=== PATIENT | male | born 1950 | race Caucasian/White ===

== ENCOUNTER → 2020-03-05 | Outpatient (CLI) | payer MEDICARE, BC ==
[~2020-03-05] MED LIST: ALPR0.5T3 PO; BYST5TAB2 PO; CYAN500T8 IM; DULO1CAP5 PO; FOLI1TAB11 PO; HYDR-3713 PO; IRBE150T7 PO; ISOVUE-370 76% 100ML VIAL As Ordered ONE; KEPP1TAB PO; MAGO400T2 PO; MULTCAP PO; OMEP1CAP73 PO; POTA10TA16 PO; PRAM1TAB7 PO; TRAZ-252 PO; XARE10TA PO; vitamin b1 PO
--- NOTE | 2020-03-05 17:42 | REPVR ---
PROCEDURE INFORMATION: Exam: CT Neck With Contrast Exam date and time: 03/05/2020 4:29 PM Age: 69 years old Clinical indication: Condition or disease; Cancer; Other: Tongue TECHNIQUE: Imaging protocol: Computed tomography images of the neck with intravenous contrast. Radiation optimization: All CT scans at this facility use at least one of these dose optimization techniques: automated exposure control; mA and/or kV adjustment per patient size (includes targeted exams where dose is matched to clinical indication); or iterative reconstruction. Contrast material: ISOVUE 370; Contrast volume: 75 ml; Contrast route: INTRAVENOUS (IV); COMPARISON: No relevant prior studies available. FINDINGS: Sinuses: There is minimal mucoperiosteal thickening in the floors of the maxillary antra.The remainder of the paranasal sinuses appear clear. Nasopharynx: Unremarkable. Oropharynx: The tongue is asymmetric- more prominent to the left of midline. The margins of the mass are not clearly defined but it may measure up to 3.2 cm AP x 2 cm in width. Series 202, image 25 series 201 images 29-42. Hypopharynx: Unremarkable. Larynx: Unremarkable. Normal epiglottis. Retropharyngeal space: Unremarkable. Submandibular/Parotid glands: The submandibular glands are symmetric. The parotid glands are symmetric. Thyroid: Normal. No enlarged or calcified nodules. Lymph nodes: There is enlarged submental lymph node in the midline measuring 9 mm. It is rounded in configuration. There are no further significantly enlarged lymph nodes. Trachea: Visualized trachea is unremarkable. Lungs: No consolidation in the upper lobes. Bones/joints: There is bony erosion of the maxilla centrally and to the right of midline likely associated with dental disease, series 201, images 23-27. Vasculature: Atherosclerosis is seen in both carotid bulbs. Soft tissues: Unremarkable. No significant soft tissue swelling. IMPRESSION: The tongue mass is not clearly defined however there is asymmetry with the left side of the tongue more prominent than the right likely indicating the site of tumor. Other than an enlarged submental lymph node there is no significant lymphadenopathy. Electronically signed by: Olivia Jones On 03/05/2020 17:42:55 PM
== END ==
LOC: M RAD 15:40
PROVIDERS: ATTEND Family Medicine
DX: C01 Malignant neoplasm of base of tongue (principal)
CPT/HCPCS: 70491; Q9967

== ENCOUNTER 2020-03-28 09:45 | Day surgery (SDC) | payer MEDICARE, BC ==
[~2020-03-28] VITALS: Ht 177.8 cm; Wt 77.0 kg
[~2020-03-28 09:45] MED LIST changes: +CETACAINE SPRAY 5GM As Ordered ONE; -ISOVUE-370 76% 100ML VIAL As Ordered ONE
[2020-03-28] MEDS ORDERED: ROCURONIUM BROMIDE 50 MG/5 ML VIAL As Ordered ONE (11:05)
[2020-03-28] MEDS ORDERED: ONDANSETRON 4MG/2ML VIAL As Ordered ONE (11:05)
[2020-03-28] MEDS ORDERED: propofoL 200 MG/20 ML VIAL As Ordered ONE (11:05)
[2020-03-28] MEDS ORDERED: dexameTHASONE 4 MG/ML 1ML VIAL (J1100 PER 1MG) As Ordered ONE (11:05)
[2020-03-28] MEDS ORDERED: LIDOCAINE 2% 100MG/5ML SDV (FOR ANES.) As Ordered ONE (11:05)
[2020-03-28] MEDS ORDERED: MIDAZOLAM INJ 2MG/2ML VIAL (J2250 PER 1MG) As Ordered ONE (11:05)
[2020-03-28] MEDS ORDERED: fentaNYL 100 MCG/2 ML INJECTION (J3010) As Ordered ONE (11:06)
[2020-03-28] MEDS ORDERED: GLYCOPYRROLATE INJ 0.2 MG/ML 2 ML VIAL As Ordered ONE (12:16)
[2020-03-28] MEDS ORDERED: ACETAMINOPHEN 1000MG 100ML IV BTL (OFIRMEV) (J0131 PER 10MG) As Ordered ONE (12:36)
[2020-03-28] MEDS ORDERED: SUGAMMADEX SODIUM 500 MG/5 ML VIAL (BRIDION) As Ordered ONE (12:36)
[2020-03-28] MEDS ORDERED: LABETALOL 100MG/20ML VIAL As Ordered ONE (12:42)
[2020-03-28] MEDS ORDERED: hydrALAZINE 20MG/ML 1ML VIAL (J0360 PER 20MG) As Ordered ONE (13:27)
[2020-03-28] MEDS: hydrALAZINE 20MG/ML 1ML VIAL (J0360 PER 20MG) IV SCH ×2 (13:30→13:40)
[2020-03-28] MEDS ORDERED: fentaNYL 100 MCG/2 ML INJECTION (J3010) IV PRN (14:00)
[2020-03-28] MEDS ORDERED: METOCLOPRAMIDE INJ 10MG/2ML VIAL (J2765 PER 1) IV PRN (14:00)
[2020-03-28] MEDS ORDERED: ACETAMINOPHEN 500 MG TAB PO PRN (14:00)
[2020-03-28] MEDS ORDERED: LR 1,000 ML IV SCH ×2 (14:00)
[2020-03-28] MEDS ORDERED: PERCOCET 5MG/325MG TAB PO PRN (14:00)
[2020-03-28] MEDS ORDERED: ONDANSETRON 4MG/2ML VIAL IV PRN (14:00)
[2020-03-28 14:55] VITALS: BP 134/59
--- NOTE | 2020-04-15 09:04 | RO ---
DATE OF OPERATION: 03/28/2020 PREOPERATIVE DIAGNOSIS: Cancer of the tongue. POSTOPERATIVE DIAGNOSIS: Cancer of the tongue. OPERATIVE PROCEDURE: * Direct laryngoscopy. * Biopsy. * Examination of lesion. PROCEDURE IN DETAIL: Under general anesthesia, with the patient intubated, the patient was draped in the usual manner. I inserted a laryngoscope. I examined the oropharynx, hypopharynx, and larynx. There was no tumor there. The tumor was on the left lateral border of the tongue extending to the floor of the mouth. It did not appear to involve the tonsil area. It did not appear to involve the posterior third of tongue. The tongue measured approximately 6 x 4 cm in size. It was ulcerative on its lateral portion. Several biopsies were taken. MTDD
--- NOTE | 2020-05-01 08:11 | RO ---
DATE OF OPERATION: 03/28/2020 PREOPERATIVE DIAGNOSIS: Cancer of the tongue. POSTOPERATIVE DIAGNOSIS: Cancer of the tongue. OPERATIVE PROCEDURE: 1. Direct laryngoscopy. 2. Biopsy. 3. Examination of lesion. SURGEON: Emmett Richardson MD INFANTRY OPERATIONS SPECIALIST: ANESTHESIA: General. PROCEDURE IN DETAIL: Under general anesthesia, with the patient intubated, the patient was draped in the usual manner. I inserted a laryngoscope. I examined the oropharynx, hypopharynx, and larynx. There was no tumor there. The tumor was on the left lateral border of the tongue extending to the floor of the mouth. It did not appear to involve the tonsil area. It did not appear to involve the posterior third of tongue. The tongue measured approximately 6 x 4 cm in size. It was ulcerative on its lateral portion. Several biopsies were taken. MTDD
== END 2020-03-28 15:00 | disposition home or self-care (01) ==
LOC: M SDC 09:45
PROVIDERS: ATTEND Otolaryngology
DX: C02.9 Malignant neoplasm of tongue, unspecified (principal); I10 Essential (primary) hypertension; F17.290 Nicotine dependence, other tobacco product, uncomplicated; Z79.899 Other long term (current) drug therapy; Z79.01 Long term (current) use of anticoagulants; Z86.711 Personal history of pulmonary embolism; Z86.718 Personal history of other venous thrombosis and embolism; Z88.5 Allergy status to narcotic agent; Z88.8 Allergy status to other drugs, medicaments and biological substances; Z92.3 Personal history of irradiation; Z85.118 Personal history of other malignant neoplasm of bronchus and lung; F41.9 Anxiety disorder, unspecified
CPT/HCPCS: 31535; 88305; 88342; J0131; J0360; J1100; J2250; J2405; J3010; U0002

== ENCOUNTER → 2020-04-03 | Outpatient (CLI) | payer MEDICARE, BC ==
[~2020-04-03] MED LIST changes: -CETACAINE SPRAY 5GM As Ordered ONE; +PROHANCE 279.3MG/ML 15ML VIAL As Ordered ONE
--- NOTE | 2020-04-11 14:25 | REP ---
MRI STUDY OF THE ORBITAL FACIAL REGION WITHOUT AND WITH INTRAVENOUS (IV) GADOLINIUM HISTORY: Malignant neoplasm of the tongue. COMPARISON: CT study of the neck with intravenous (IV) contrast from 03/05/2020. GADOLINIUM ENHANCEMENT DOSE: 50 mL of intravenous ProHance is administered. TECHNIQUE: Axial and coronal T1 and T2-weighted scans are obtained with and without fat saturation. MRI FINDINGS: Cortical and medullary bone signal intensity is normal in the mandible, maxilla, and visualized cervical spine elements. Parotid and submandibular glands are normal and symmetric. There is asymmetry along the left lateral border of the tongue with thickening of the left lateral border of the tongue on T1-weighted scans. Heterogeneous signal intensity on T2-weighted scans and some heterogeneous contrast enhancement along the lateral border of the tongue on postcontrast images. The area in question extends over an anteroposterior span of approximately 3.9 cm and measures 1.4 cm in [id number] dimension x approximately 2.8 cm in craniocaudal span on coronal images. This should be correlated with the area of the lesion on physical exam. It does correlate with an area of apparent thickening on CT study. The lesion appears to involve the lateral surface of the tongue. There is no tonsillar or peritonsillar asymmetry. The soft tissue neck CT study showed a submental lymph node measuring 8 mm in diameter, which is less conspicuous on MR, but felt to be unchanged. It shows subtle contrast enhancement. No other evident adenopathy is seen. No vascular abnormality is noted. IMPRESSION: Findings consistent with a fairly large mass with heterogeneous contrast enhancement along the left lateral border of the tongue. There is one equivocal submental lymph node seen. No other evidence of adenopathy. [employer]
== END ==
LOC: M RAD 10:40
PROVIDERS: ATTEND Otolaryngology
DX: C02.1 Malignant neoplasm of border of tongue (principal)
CPT/HCPCS: 70543; A9576

== ENCOUNTER 2020-04-06 14:48 | Emergency (ER) | payer MEDICARE, BC ==
[~2020-04-06 14:48] MED LIST changes: -PROHANCE 279.3MG/ML 15ML VIAL As Ordered ONE
[2020-04-06 16:43] LABS: BASO % 0.1 % (0.0-1.0); HEMATOCRIT 34.2 % (42.0-52.0); HEMOGLOBIN 11.5 g/dl (13.5-17.5); LYMPH # 1.1 10^3/uL (1.5-5.0); LYMPH % 12.8 % (24.0-44.0); MEAN CORPUSCULAR HEMOGLOBIN 35.1 pg (27.0-33.0); MEAN CORPUSCULAR HGB CONC 33.6 g/dl (32.0-36.5); MEAN CORPUSCULAR VOLUME 104.3 fl (80.0-96.0); MONO % 11.1 % (0.0-5.0); NEUTROPHILS # 6.5 10^3/uL (1.5-8.5); NEUTROPHILS % 75.4 % (36.0-66.0); PLATELET COUNT, AUTOMATED 233 10^3/uL (150-450); RED BLOOD COUNT 3.28 10^6/uL (4.30-6.10); WHITE BLOOD COUNT 8.7 10^3/uL (4.0-10.0)
[2020-04-06] MEDS ORDERED: ISOVUE-370 76% 100ML VIAL As Ordered ONE (16:48)
[2020-04-06 16:53] LABS: INR 1.33; PROTHROMBIN TIME 16.8 SECONDS (12.5-14.3)
[2020-04-06 16:54] LABS: PARTIAL THROMBOPLASTIN TIME 37.7 SECONDS (24.2-38.5)
[2020-04-06 17:07] LABS: ALBUMIN 3.6 GM/DL (3.2-5.2); BILIRUBIN,DIRECT 0.3 MG/DL (0.0-0.2); BILIRUBIN,TOTAL 1.2 MG/DL (0.2-1.0); TOTAL PROTEIN 7.1 GM/DL (6.4-8.2)
[2020-04-06] MEDS ORDERED: ACETAMINOPHEN 500 MG TAB PO ONE (18:45)
--- NOTE | 2020-04-06 19:30 | REPVR ---
PROCEDURE INFORMATION: Exam: CT Abdomen And Pelvis With Contrast Exam date and time: 04/06/2020 4:55 PM Age: 69 years old Clinical indication: Abdominal pain; Localized; Lower; Prior surgery; Surgery date: Post-operative (0-2 days); Additional info: Lower abdominal pain, hematochezia, hematuria TECHNIQUE: Imaging protocol: Computed tomography of the abdomen and pelvis with intravenous contrast. Radiation optimization: All CT scans at this facility use at least one of these dose optimization techniques: automated exposure control; mA and/or kV adjustment per patient size (includes targeted exams where dose is matched to clinical indication); or iterative reconstruction. Contrast material: ISOVUE 370; Contrast volume: 100 ml; Contrast route: INTRAVENOUS (IV); COMPARISON: CT Neck with contrast 03/05/2020 4:29:57 PM FINDINGS: Lungs: There is large nodular spiculated opacity in the right lower lobe anteriorly measuring up to 4.1 cm by 1.7 cm there is adjacent bronchiectasis along the medial margin. There is aneurysmal dilatation of the ascending thoracic aorta, measuring 4.8 cm. This is compared to dimension of 2.7 cm in the descending thoracic aorta at the same level, the level of the right pulmonary artery. Aortic and coronary atherosclerosis is noted. Liver: Normal. No mass. Gallbladder and bile ducts: Normal. No calcified stones. No ductal dilation. Pancreas: Normal. No ductal dilation. Spleen: Normal. No splenomegaly. Adrenals: Normal. No mass. Kidneys and ureters: There is bilateral renal cortical scarring. 1.6 cm exophytic simple cyst at the medial aspect of the mid left kidney. There are nonobstructing left renal calculi Stomach and bowel: The ascending colon is distended with fluid and air-fluid levels. Mild distension of the transverse colon with fluid and air-fluid levels. There is some stool in the sigmoid colon with large amount of stool in the rectum, with some surrounding fluid in the sigmoid colon with air-fluid levels. These findings suggest a diarrheal illness. There is rectal wall thickening and perirectal fat stranding. Findings suggest proctitis and fecal impaction. Appendix: No evidence of appendicitis. Intraperitoneal space: Unremarkable. No free air. No significant fluid collection. Vasculature: There is extensive calcified atherosclerotic plaque in the abdominal aorta and medium-sized arteries in the abdomen and pelvis. No aortic aneurysm. There are segments with at least moderate narrowing in the bilateral external iliac arteries. Lymph nodes: Unremarkable. No enlarged lymph nodes. Urinary bladder: Unremarkable as visualized. Reproductive: Unremarkable as visualized. Bones/joints: No acute osseous abnormality. Multilevel degenerative disc and facet disease in the lumbar spine. Soft tissues: There are bilateral noninflamed fat containing inguinal hernias which are small in size. Small noninflamed fat containing umbilical hernia. IMPRESSION: 1. Findings suggesting fecal impaction and proctitis, superimposed on a presumed diarrheal illness. Distension of the right colon and less so transverse colon, likely a component of colonic ileus associated with colitis. 2. Large nodular and somewhat bandlike spiculated opacity at the right lung base measuring up to 4.1 cm, of uncertain etiology. Recommend correlation with prior outside imaging. This may simply represent nodular scarring. However, with the patient's provided history of tongue cancer on prior CT neck, this could represent a metastasis, or treated metastasis. Primary lung carcinoma is not excluded. If there are no outside comparison studies, recommend CT PET. 3. 4.8 cm aneurysmal dilatation of the ascending thoracic aorta. Extensive atherosclerosis. 4. Noninflamed fat containing umbilical and bilateral inguinal hernias. 5. 1.6 cm simple right renal cyst. No further imaging follow-up is necessary. Fleischner Society follow up recommendations for incidental nodules are not indicated. Follow up per the patient's medical condition. COMMENTS: Consistent with the [employer]'s Incidental Findings Committee white paper (J Am Isis Radiol 2018): Any incidental renal lesion less than 1 cm or classified as too small to characterize, or any incidental cystic renal lesion characterized as simple-appearing, is likely benign. No follow-up imaging is recommended for these lesions per consensus recommendations based on imaging criteria. Electronically signed by: Sudha Hernandez On 04/06/2020 19:29:26 PM
[2020-04-06 21:15] VITALS: BP 176/88
== END 2020-04-06 21:15 | disposition home or self-care (01) ==
LOC: M ED 14:48
DX: K56.41 Fecal impaction (principal); R91.8 Other nonspecific abnormal finding of lung field; N28.1 Cyst of kidney, acquired; I70.0 Atherosclerosis of aorta; I10 Essential (primary) hypertension; D51.9 Vitamin B12 deficiency anemia, unspecified; Z86.711 Personal history of pulmonary embolism; Z86.718 Personal history of other venous thrombosis and embolism; Z79.01 Long term (current) use of anticoagulants; Z85.118 Personal history of other malignant neoplasm of bronchus and lung; Z85.810 Personal history of malignant neoplasm of tongue; Z87.891 Personal history of nicotine dependence; Z79.899 Other long term (current) drug therapy; Z88.5 Allergy status to narcotic agent; Z88.8 Allergy status to other drugs, medicaments and biological substances
CPT/HCPCS: 36415; 74177; 80047; 80076; 83605; 85025; 85610; 85730; 93041; 99285; Q9967

== ENCOUNTER → 2020-05-07 | Outpatient (CLI) | payer MEDICARE, BC ==
--- NOTE | 2020-05-08 13:04 | REP ---
INDICATION: MALIGNANT NEOPLASM OF SITES OF LIP,ORAL CAVITY, AND PHARYNX COMPARISON: Comparison MRI study of the orbits April 03, 2020. Comparison soft tissue neck CT study March 05, 2020.. Comparison CT images [facility] dated July 21, 2010. TECHNIQUE: Fifty-two minutes following the intravenous injection of a 8.48 mCi dose of F-18 FDG, three-dimensional PET scintigraphy is acquired from the skull base to the proximal thighs. Triplanar noncontrast CT scanning is acquired through the same anatomic range for attenuation correction, and image registration with scan parameters optimized to minimize radiation exposure to the patient. PET scintigraphy and CT datasets were fused and displayed on a workstation with multiplanar and projection display capability. FINDINGS: There is a large area of hypermetabolic uptake along the left side of the oral cavity involving the lateral surface of the tongue region corresponding with the MR findings. This measures 6.3 cm anterior-posterior by 3.0 cm medial to lateral. Maximum standard uptake value in this large lesion is quite high, 23.82. The previous recently identified as small submental lymph node has visible but non hypermetabolic uptake, maximum SUV value 2.08. There is another 1 cm lymph node in the left neck posteriorly inferior to the floor of the mouth at the level of the hyoid and epiglottis. This has maximum standard uptake value of 2.62. This is of uncertain significance. There is a 1.4 cm ground-glass opacity in the right middle lobe just above the right hemidiaphragm which shows non hypermetabolic FDG accumulation, 1.65. In the right infrahilar region there is a bandlike area of the right lower lobe fibroatelectasis. Maximum standard uptake value here is 1.34. This is not hypermetabolic either. There is a nodular opacity higher up in the right middle lobe add midlung level with non hypermetabolic uptake, 0.87. This measures 1.0 cm. It is a noncalcified nodule. There is no hypermetabolic uptake in the thorax. No other abnormal pulmonary parenchymal opacity. The abdomen and pelvis, there is normal a patent, splenic, gastrointestinal, genitourinary FDG accumulation. No abnormal abdominal or pelvic hypermetabolic uptake. IMPRESSION: There is a large hypermetabolic mass lesion in the left side of the oral cavity along the lateral surface of the tongue. Equivocal uptake is seen in its in 2 normal-sized lymph nodes, 1 submental and 1 in the left neck posteriorly. There are 2 right lung nodules and a fibro atelectatic band of parenchymal opacity in the right lower lobe of the lung. These do not show hypermetabolic uptake. The nodules merit interval CT follow-up however, as they are small and low-grade malignancy cannot be excluded. These nodular opacities were not present in 2011. <Electronically signed by Javier Orozco > 05/08/20 [id number]
== END ==
LOC: M PLARAD 12:00
PROVIDERS: ATTEND Otolaryngology
DX: C14.8 Malignant neoplasm of overlapping sites of lip, oral cavity and pharynx (principal); R91.8 Other nonspecific abnormal finding of lung field
CPT/HCPCS: 78815; A9552

== ENCOUNTER 2020-06-17 11:35 | Inpatient (IN) | payer MEDICARE, BC ==
[~2020-06-17] VITALS: Ht 180.3 cm; Wt 57.2 kg
[~2020-06-17 11:35] MED LIST changes: +CYAN500T14 IM; -CYAN500T8 IM
[2020-06-17] MEDS ORDERED: NS 1,000 ML IV ONE ×2 (12:00→13:00)
[2020-06-17] MEDS ORDERED: ACETAMINOPHEN TAB 650MG DOSE (2X325MG) PO ONE (12:00)
[2020-06-17 12:12] LABS: BASO # 0.1 10^3/uL (0.0-0.2); BASO % 0.4 % (0.0-1.0); HEMATOCRIT 24.1 % (42.0-52.0); HEMOGLOBIN 7.5 g/dl (13.5-17.5); LYMPH # 0.6 10^3/uL (1.5-5.0); LYMPH % 3.5 % (24.0-44.0); MEAN CORPUSCULAR HEMOGLOBIN 33.6 pg (27.0-33.0); MEAN CORPUSCULAR HGB CONC 31.1 g/dl (32.0-36.5); MEAN CORPUSCULAR VOLUME 108.1 fl (80.0-96.0); MONO # 0.9 10^3/uL (0.0-0.8); MONO % 5.3 % (0.0-5.0); NEUTROPHILS # 14.4 10^3/uL (1.5-8.5); NEUTROPHILS % 88.7 % (36.0-66.0); PLATELET COUNT, AUTOMATED 245 10^3/uL (150-450); RED BLOOD COUNT 2.23 10^6/uL (4.30-6.10); WHITE BLOOD COUNT 16.3 10^3/uL (4.0-10.0)
[2020-06-17 12:22] LABS: INR 2.25; PROTHROMBIN TIME 25.4 SECONDS (12.5-14.3)
[2020-06-17 12:37] LABS: CALCIUM LEVEL 8.4 MG/DL (8.8-10.2); CREATININE FOR GFR 1.95 MG/DL (0.70-1.30); GLOMERULAR FILTRATION RATE 36.3 (>42); POTASSIUM SERUM 4.4 MEQ/L (3.5-5.1)
[2020-06-17] MEDS ORDERED: ECOT81TA5 PO (12:41)
[2020-06-17] MEDS ORDERED: OXYC1SOL3 GT (12:41)
[2020-06-17] MEDS ORDERED: FENT1DIS14 TOP (12:41)
[2020-06-17] MEDS ORDERED: VENL75CA47 PO (12:41)
[2020-06-17] MEDS ORDERED: PIPERACILLIN/TAZOBACTAM SOD 3.375 GM in D5W MINI-BAG PLUS 50 ML IV ONE (13:00)
--- NOTE | 2020-06-17 13:31 | REP ---
INDICATION: SOB/Cough/FEVER. COMPARISON: PET-CT 05/07/2020. TECHNIQUE: SINGLE PORTABLE AP VIEW OF THE CHEST WAS PERFORMED. FINDINGS: There is patchy atelectasis or infiltrate in the left lung base. Focal irregular parenchymal opacity in the right lower lung was seen on the prior PET-CT exam. There is mild cardiomegaly. There is mild calcification of the thoracic aorta. Mediastinal silhouette otherwise appears unremarkable. IMPRESSION: Left base atelectasis/infiltrate. <Electronically signed by El Gunter > 06/17/20 [id number]
--- NOTE | 2020-06-17 14:16 | REP ---
INDICATION: altered mental status. COMPARISON: None. TECHNIQUE: Helical scanning is acquired. 5 mm axial images were reformatted. Coronal MPR images were generated. FINDINGS: Vascular calcification is noted in the distal internal carotid arteries bilaterally. There are mild mucosal changes in the maxillary sinuses bilaterally. The other visualized paranasal sinuses are clear. Bony calvarium is intact. No intraorbital abnormality is seen. There is mild generalized volume loss. Mild small vessel changes are noted. No infarct, hemorrhage, mass, extra-axial fluid collection or midline shift is seen. IMPRESSION: Generalized volume loss and vascular calcification. Small vessel changes. No acute intracranial abnormality.. <Electronically signed by Javier Orozco > 06/17/20 [id number]
--- NOTE | 2020-06-17 14:23 | REP ---
INDICATION: pneumonia- possible aspiration. COMPARISON: Comparison is made with CT images of the lung bases from 04/06/2020 as well as a prior chest CT study from July 21, 2010.. TECHNIQUE: Helical scanning is acquired and 3 mm axial images are generated. Coronal and sagittal MPR and coronal MIP images are generate FINDINGS: Preliminary digital cottage supervisor radiograph demonstrates increased density in the bases. On axial CT images there are fairly large areas of patchy infiltrate consistent with pneumonia involving left upper lobe, left lower lobe and to a lesser extent right lower lobe. The heavy is opacification is in the left lower lobe. There is a bandlike area of opacity with air bronchograms in the right lower lobe distribution oriented anterior to posterior. This is unchanged from the 04/06/2020 study and may reflect post thoracotomy partial pneumonectomy change with scarring. The this area was seen on PET-CT from May 07, 2020 and not felt to be hypermetabolic. There is a right upper lobe nodule visualized on page 51 of 116 in series 301 of today's study. This nodule measures 7 mm and is seen along the medial wall of a small bolus. There is a right suprahilar nodule measuring 1.7 cm in diameter versus a right hilar lymph node. This appears to have peripheral calcifications consistent with it being a lymph node. It was not apparent in 2010. It is unchanged from the PET-CT. No pleural or pericardial effusion is seen. Cardiomegaly is observed. The ascending aorta is somewhat dilated 4.7 cm in AP dimension at the level of the right main pulmonary artery. Visualized upper abdominal structures are unremarkable. IMPRESSION: New infiltrates in the left lower lobe, left upper lobe, and right lower lobe. Consistent with pneumonia including aspiration pneumonia. Chronic nodular changes and a bandlike area of fibrosis right lower lobe. <Electronically signed by Javier Orozco > 06/17/20 [id number]
[2020-06-17] MEDS ORDERED: XARE20TA PO (14:52)
[2020-06-17] MEDS ORDERED: DULO30CA9 PO (14:52)
[2020-06-17] MEDS ORDERED: NS 500 ML IV ONE (15:00)
[2020-06-17] MEDS ORDERED: PIPERACILLIN/TAZOBACTAM SOD 2.25 GM in D5W MINI-BAG PLUS 50 ML IV SCH (15:15)
[2020-06-17 16:30] VITALS: BP 119/56
[2020-06-17] MEDS ORDERED: oxyCODONE 5MG TAB PO PRN (17:00)
--- NOTE | 2020-06-17 17:04 | HPEPDOC ---
General Date of Admission Jun 17, 2020 at 14:58 Chief Complaint The patient is a 69-year-old male admitted with a reason for visit of Pneumonia, Tongue Cancer. History of Present Illness 69 year old male with stage 4 tongue cancer not on any treatment yet was sent to the ED for dizziness, weakness and lethargy for about 2 to 3 days. As per he also had some cough at home but no fever or chills. She was using the PEG tube but was able to get only about 2 cans of feed / day as everything would come right back up the tube. Patient was started on a fentanyl patch about a week ago and reports that on the day he puts on a new patch he sleeps all day then the next day is better. Yesterday and today has been really bad and he has been sleeping all day and unable to get out of bed. He normally has giat instability and uses a wheelchair. No abdominal pain, or vomiting. In the ED on arrival he was Febrile to 101. Hypoxic needing 4 liters, hypotensive. Blood work showed elevated WBC, elevated creatinine, CT head was negative, Abg did not show hypercarbia. CT chest showed infiltrates in both the left upper and lower lobe and plate like atelectasis / fibrosis in the right lower lobe. He was admitted for Aspiration pneumonia with sepsis and FELIX Home Medications Scheduled Aspirin (Ecotrin) 81 Mg Tablet.dr, 81 MG PO QHS, (Reported) Cyanocobalamin (Vitamin B-12) (Vitamin B-12) 500 Mcg Tablet, Unknown Dose IM QWEEK, (Reported) Fentanyl (Fentanyl) 25 Mcg Patch.td72, 1 PATCH TOP Q3DP, (Reported) Folic Acid (Folic Acid) 1 Mg Tablet, 1 MG PO DAILY, (Reported) Irbesartan (Irbesartan) 150 Mg Tablet, 150 MG PO DAILY, (Reported) Levetiracetam (Keppra) 500 Mg Tablet, 500 MG PO BID, (Reported) Nebivolol HCl (Bystolic) 5 Mg Tablet, 5 MG PO QHS, (Reported) Omeprazole (Omeprazole) 20 Mg Capsule.dr, 20 MG PO DAILY, (Reported) Pramipexole Di-HCl (Pramipexole Dihydrochloride) 1 Mg Tablet, 0.5 MG PO QHS, (Reported) Rivaroxaban (Xarelto) 20 Mg Tablet, 20 MG PO DAILY, (Reported) Venlafaxine HCl (Venlafaxine HCl ER) 75 Mg Cap.er.24h, 225 MG PO QHS, (Reported) Scheduled PRN Alprazolam (Alprazolam) 0.5 Mg Tablet, 0.5 MG PO Q8H PRN for ANXIETY/AGITATION, (Reported) Hydrocodone/Acetaminophen (Hydrocodone-Acetamin 5-325 mg) 1 Each Tablet, 2 TAB PO Q6H PRN for PAIN, (Reported) Oxycodone HCl (Oxycodone HCl) 5 Mg/5 Ml Solution, 10 ML GT Q6H PRN for BREAKTHROUGH PAIN, (Reported) Trazodone HCl (Trazodone HCl) 50 Mg Tablet, 50 MG PO QHSP PRN for SLEEP, (Reported) Allergies Coded Allergies: Sbcrfxn-Ply-Jdm Reductase Inhibitor (Verified Allergy, Unknown, 03/27/20) morphine (Verified Adverse Reaction, Intermediate, confusion and memory loss, 03/27/20) Past Medical History Medical History 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 DVT/PE in 1999, currently on xarelto Hypertension COPD H/o alcohol abuse in the past Chronic pain anxiety depression GERD. Gait instability and WC bound Family History Significant Family History: Cancer (skin cancer) Social History * Smoker: former Smoker, quit less than 1 year, other (vape) Alcohol: Denies Drugs: denies A-FIB/CHADSVASC A-FIB History Current/History of A-Fib/PAF?: No Review of Systems Constitutional: Reports: Chills, Fever, Weakness, Fatigue, Lethargy; Denies: Night Sweats Eyes: Denies: Pain, Vision change ENT: Reports: Dysphagia; Denies: Head Aches, Ear Pain Skin: Denies: Rash, Lesions, Breakdown Pulmonary: Reports: Dyspnea, Cough Cardiovascular: Denies: Chest Pain, Palpitations, Orthopnea, Paroxysmal Noc. Dyspnea Gastrointestinal: Reports: Other Symptoms (PEG tube in place); Denies: Nausea, Vomiting, Abdominal Pain, Diarrhea Genitourinary: Denies: Dysuria, Frequency, Incontinence, Retention Hematologic: Denies: Bruising, Bleeding Excessively Musculoskeletal: Reports: Back Pain, Leg Pain, Joint Pain, Muscle Pain Neurological: Reports: Change in speech, Confusion Physical Examination General Exam: Positive: Alert, Cooperative Eye Exam: Positive: PERRLA, Conjunctiva & lids normal, EOMI; Negative: Sclera icteric ENT Exam: Positive: Atraumatic, Mucous membr. moist/pink, Pharynx Normal Neck Exam: Positive: Supple; Negative: JVD, thyromegaly Chest Exam: Positive: Clear to auscultation, Other (bibasilar crackles. and crackles onthe left upper side. ) Heart Exam: Positive: Rate Normal, Regular Rhythm, Normal S1, Normal S2; Negative: Murmurs, Rubs Telemetry: Positive: No significant arrhythmia Abdomen Exam: Positive: Normal bowel sounds, Soft, Other (PEG tube in place); Negative: Tenderness, Hepatospenomegaly Extremity Exam: Positive: Tenderness; Negative: Clubbing, Cyanosis, Edema Vital Signs Vital Signs Date Time Temp Pulse Resp B/P (MAP) Pulse Ox O2 Delivery O2 Flow Rate FiO2 06/17/20 15:16 97.1 63 24 89/52 (64) 96 Nasal Cannula 4.0 Laboratory Data Labs 24H Laboratory Tests 2 06/17/20 11:51: Immature Granulocyte % (Auto) 2.1, Neutrophils (%) (Auto) 88.7H, Lymphocytes (%) (Auto) 3.5L, Monocytes (%) (Auto) 5.3H, Eosinophils (%) (Auto) 0.0, Basophils (%) (Auto) 0.4, Neutrophils # (Auto) 14.4H, Lymphocytes # (Auto) 0.6L, Monocytes # (Auto) 0.9H, Eosinophils # (Auto) 0.0, Basophils # (Auto) 0.1, Nucleated Red Blood Cells % (auto) 0.0, Prothrombin Time 25.4H, Prothromb Time International Ratio 2.25, Anion Gap 5L, Glomerular Filtration Rate 36.3L, Lactic Acid Level 1.8, Calcium Level 8.4L 06/17/20 13:41: POC pH (Misc Panel) 7.423, POC Base Excess (Misc Panel) -2.0, POC Saturated Percent O2 (Misc) 98, POC pO2 (Misc Panel) 102.0, POC pCO2 (Misc Panel) 34.4L, POC HCO3 (Misc Panel) 22.5, POC Total CO2 (Misc Panel) 23.0 CBC/BMP Laboratory Tests 06/17/20 11:51 Microbiology Microbiology 06/17/20 Blood Culture, Received Pending 06/17/20 Respiratory Virus Panel (PCR) (NICOLASA) - Final, Complete 06/17/20 Blood Culture, Received Pending Assessment/Plan 69 year old male with stage 4 tongue cancer not on any treatment yet was sent to the ED for dizziness, weakness and lethargy for about 2 to 3 days. As per he also had some cough at home but no fever or chills. She was using the PEG tube but was able to get only about 2 cans of feed / day as everything would come right back up the tube. Patient was started on a fentanyl patch about a week ago and reports that on the day he puts on a new patch he sleeps all day then the next day is better. Yesterday and today has been really bad and he has been sleeping all day and unable to get out of bed. He normally has giat instability and uses a wheelchair. No abdominal pain, or vomiting. In the ED on arival he was Febrile to 101. Hypoxic needing 4 liters, hypotensive. Blood work showed elevated WBC, elevated creatinine, CT head was negative, Abg did not show hypercarbia. CT chest showed infiltrates in bothe th left upper and lower lobe and plate like atelectasis / fibrosis in the right lower lobe. He was admitted for Aspiration pneumonia with sepsis and FELIX. Aspiration pneumonia with spsis getting fluid loading, Hypotension responding to IVF. No tachycardia. Cultures have been sent continue Zosyn Had PEG tube in place will hold feeds tonight. Acute respiratory failure with Hypoxia probably due to pneumonia Has h/o COPD no inhalors or nebs at home. does not use oxygen at use will give nebs. FELIX stop irbesartan continue IVF H/o hypertension now with Hypotension stop irbesartan and nebivolol. Macrocytic Anemia HB at 7.9 guaic negative will check iron profile hs h/o B12 def probably anemia of chronic disease. Stage 4 Tongue cancer consulted oncology and radiation oncology as he was supposed to see them this week. Dr Shahid and Dr Singh. Chronic pain will continue oxycodone prn, keediera, also has fentanyl patch on place. H/o DVT and PE continue xarelto. INR 2.25 Plan / VTE VTE Prophylaxis Ordered?: Yes SACHI SOLANO MD Jun 17, 2020 16:24
[2020-06-17] MEDS: D5W/0.9% SODIUM CHLORIDE 1,000 ML IV SCH (17:13)
[2020-06-17 17:23] LABS: PERCENT SATURATION 5.6 % (19.7-50.0)
[2020-06-17 17:31] LABS: FOLATE 20.9 NG/ML
[2020-06-17] MEDS: IPRATROPIUM 0.5MG/ALBUTEROL 2.5MG INH SOL UD 3ML (DUONEB) NEB SCH (19:59)
[2020-06-17 20:00] VITALS: BP 115/60
[2020-06-17] MEDS ORDERED: VENLAFAXINE 37.5 MG TAB PO SCH (21:00)
[2020-06-17] MEDS ORDERED: VENLAFAXINE **XR** 75MG CAPSULE PO SCH (21:00)
[2020-06-17] MEDS ORDERED: ASPIRIN 81 MG ENTERIC TAB PO SCH (21:00)
[2020-06-17] MEDS ORDERED: levETIRAcetam 250MG TABLET (KEPPRA) PO SCH (21:00)
[2020-06-17] MEDS: PIPERACILLIN/TAZOBACTAM SOD 2.25 GM in D5W MINI-BAG PLUS 50 ML IV SCH (23:03)
[2020-06-18] VITALS (14 sets, daily range): BP systolic 101–176; BP diastolic 51–78
--- NOTE | 2020-06-18 00:43 | ECGEPIP ---
[facility] - ED Test Date: 2020-06-17 Pat Name: TYRA ZHOU Department: Room: 01[facility] Gender: Male Pole Classifier: slade : [id number] Requested By: SEMAJ Fuller Order Number: [id number] Reading MD: Jamie Mcpherson Measurements Intervals [place] Rate: 62 P: 209 NE: 231 QRS: -3 QRSD: 145 T: 14 QT: 435 QTc: 444 Interpretive Statements SINUS RHYTHM WITH FIRST DEGREE AV BLOCK RIGHT BUNDLE BRANCH BLOCK BASELINE ARTIFACT AFFECTS INTERPRETATION NO PRIORS FOR COMPARISON Electronically Signed on 06-18-2020 0:43:08 EST by Jamie Mcpherson
[2020-06-18] MEDS: ASPIRIN 81 MG CHEW TABLET PEG SCH ×2 (01:09→20:05)
[2020-06-18] MEDS: PRAMIPEXOLE 0.25 MG TAB PO SCH ×2 (01:11→20:06)
[2020-06-18] MEDS: levETIRAcetam 250MG TABLET (KEPPRA) PEG SCH ×3 (01:11→20:05)
[2020-06-18] MEDS: VENLAFAXINE 37.5 MG TAB PEG SCH ×3 (01:12→20:06)
[2020-06-18] MEDS: IPRATROPIUM 0.5MG/ALBUTEROL 2.5MG INH SOL UD 3ML (DUONEB) NEB SCH ×4 (01:33→19:22)
[2020-06-18] MEDS: PIPERACILLIN/TAZOBACTAM SOD 2.25 GM in D5W MINI-BAG PLUS 50 ML IV SCH ×4 (03:15→20:05)
[2020-06-18 05:59] LABS: BASO % 0.3 % (0.0-1.0); EOS % 0.1 % (0.0-3.0); HEMATOCRIT 22.2 % (42.0-52.0); LYMPH # 0.8 10^3/uL (1.5-5.0); MEAN CORPUSCULAR HEMOGLOBIN 33.8 pg (27.0-33.0); MEAN CORPUSCULAR HGB CONC 30.6 g/dl (32.0-36.5); MEAN CORPUSCULAR VOLUME 110.4 fl (80.0-96.0); MONO # 0.7 10^3/uL (0.0-0.8); MONO % 7.2 % (0.0-5.0); NEUTROPHILS # 7.7 10^3/uL (1.5-8.5); NEUTROPHILS % 82.2 % (36.0-66.0); PLATELET COUNT, AUTOMATED 218 10^3/uL (150-450); RED BLOOD COUNT 2.01 10^6/uL (4.30-6.10); WHITE BLOOD COUNT 9.4 10^3/uL (4.0-10.0)
[2020-06-18 06:10] LABS: INR 1.24; PROTHROMBIN TIME 15.9 SECONDS (12.5-14.3)
[2020-06-18 06:18] LABS: HEMOGLOBIN 6.8 g/dl (13.5-17.5)
[2020-06-18 06:19] LABS: BLOOD UREA NITROGEN 53 MG/DL (7-18); CALCIUM LEVEL 8.2 MG/DL (8.8-10.2); CARBON DIOXIDE LEVEL 25 MEQ/L (21-32); CHLORIDE LEVEL 111 MEQ/L (98-107); CREATININE FOR GFR 1.08 MG/DL (0.70-1.30); GLOMERULAR FILTRATION RATE > 60.0 (>42); GLUCOSE, FASTING 95 MG/DL (70-100); POTASSIUM SERUM 4.3 MEQ/L (3.5-5.1); SODIUM LEVEL 142 MEQ/L (136-145)
[2020-06-18] MEDS: RIVAROXABAN 20 MG TAB (XARELTO) PO SCH (08:34)
[2020-06-18] MEDS: D5W/0.9% SODIUM CHLORIDE 1,000 ML IV SCH (08:35)
[2020-06-18] MEDS: PANTOPRAZOLE 40MG VIAL (C9113 PER 1) IV SCH (08:36)
--- NOTE | 2020-06-18 08:48 | IPNPDOC ---
Date Seen The patient was seen on 06/18/20. Progress Note Subjective: lethargic, but answered questions appropriately. says his fentanyl patch is due to be removed tonight. no c/o pain. Objective: PE vitals see below GEN: lethargic 4-5 w conversational dyspnea. no cyanosis trachea midline HEENT: tongue ca. dysarthric due to tongue ca. no JVD + use resp acc mm Lungs: b/l rhonchi, diminished. Heart: S1 S2 RRR Abd: +bs x 4 quadrants soft nt nd. feeding tube on left clean w/o erythema ext: no c/c/e Laboratory data, imaging: see below, reviewed. ASSESSMENT: 69 year old male with stage 4 tongue cancer admitted for FELIX, sepsis, Aspiration PNA, and acute metab encephalopathy. Aspiration pneumonia Sepsis Acute metabolic encephalopathy. Acute respiratory failure with Hypoxia FELIX H/o hypertension now with Hypotension symptomatic chronic Macrocytic Anemia Stage 4 Tongue cancer Chronic pain H/o DVT and PE PLAN: transfuse 2 u rbc today. consent from . pt had an onc appt , but unlikely to be dc'ed by then. will consult medonc wed or . continue iv abx. decrease sedatives and pain meds. VS, I&O, 24H, Fishbone Vital Signs/I&O Vital Signs Date Time Temp Pulse Resp B/P (MAP) Pulse Ox O2 Delivery O2 Flow Rate FiO2 06/18/20 07:08 98.0 66 22 107/68 (81) 93 Room Air 06/18/20 04:00 4.0 I&O- Last 24 Hours up to 6 AM 06/18/20 06:00 Intake Total 2550 ml Output Total 375 ml Balance 2175 ml Laboratory Data 24H LABS Laboratory Tests 2 06/17/20 11:51: Immature Granulocyte % (Auto) 2.1, Neutrophils (%) (Auto) 88.7H, Lymphocytes (%) (Auto) 3.5L, Monocytes (%) (Auto) 5.3H, Eosinophils (%) (Auto) 0.0, Basophils (%) (Auto) 0.4, Neutrophils # (Auto) 14.4H, Lymphocytes # (Auto) 0.6L, Monocytes # (Auto) 0.9H, Eosinophils # (Auto) 0.0, Basophils # (Auto) 0.1, Nucleated Red Blood Cells % (auto) 0.0, Prothrombin Time 25.4H, Prothromb Time International Ratio 2.25, Anion Gap 5L, Glomerular Filtration Rate 36.3L, Lactic Acid Level 1.8, Calcium Level 8.4L, Iron Level 9L, Total Iron Binding Capacity 161L, Transferrin % Saturation 5.6L, Ferritin 308, Vitamin B12 Level 1826, Folate 20.9 06/17/20 13:41: POC pH (Misc Panel) 7.423, POC Base Excess (Misc Panel) -2.0, POC Saturated Percent O2 (Misc) 98, POC pO2 (Misc Panel) 102.0, POC pCO2 (Misc Panel) 34.4L, POC HCO3 (Misc Panel) 22.5, POC Total CO2 (Misc Panel) 23.0 06/18/20 05:22: Immature Granulocyte % (Auto) 1.2, Neutrophils (%) (Auto) 82.2H, Lymphocytes (%) (Auto) 9.0L, Monocytes (%) (Auto) 7.2H, Eosinophils (%) (Auto) 0.1, Basophils (%) (Auto) 0.3, Neutrophils # (Auto) 7.7, Lymphocytes # (Auto) 0.8L, Monocytes # (Auto) 0.7, Eosinophils # (Auto) 0.0, Basophils # (Auto) 0.0, Nucleated Red Blood Cells % (auto) 0.0, Prothrombin Time 15.9H, Prothromb Time International R atio 1.24, Anion Gap 6L, Glomerular Filtration Rate > 60.0, Calcium Level 8.2L CBC/BMP Laboratory Tests 06/17/20 11:51 06/18/20 05:22 Microbiology Microbiology 06/17/20 Blood Culture, Received Pending 06/17/20 Respiratory Virus Panel (PCR) (NICOLASA) - Final, Complete 06/17/20 Blood Culture, Received Pending DERICK ROD MD Jun 18, 2020 08:27
[2020-06-18] MEDS ORDERED: VENLAFAXINE 37.5 MG TAB PEG SCH (09:00)
[2020-06-18] MEDS ORDERED: levETIRAcetam 250MG TABLET (KEPPRA) PEG SCH (09:00)
[2020-06-18 09:25] LABS: HEMATOCRIT 21.9 % (42.0-52.0)
[2020-06-18 09:30] LABS: HEMOGLOBIN 6.7 g/dl (13.5-17.5)
--- NOTE | 2020-06-18 09:39 | CR.PDOC ---
General Date of Consultation: Jun 18, 2020 Consultation REASON FOR CONSULTATION/CHIEF COMPLAINT: Tongue cancer HISTORY OF PRESENT ILLNESS: This is a 69 year old man. He is admitted dyspnea and lethargy . CAT scan of his chest is showing left lower lobe , left upper lobe and right lower lobe infiltrate. Prior to admission her had a biopsy of a lesion on the base of his tongue . Biopsy showed invasive squamous cell carcinoma. Oncology called to address the tongue lesion. ALLERGIES: Please see below. HOME MEDICATIONS: Please see below. PAST MEDICAL HISTORY: 1. colon polyps 2. lung cancer 3. aortic aneurysm 4. Mclaughlin's esophagus 5. COPD 6. DVT & Pulmonary embolism 7. arthritis 8. Hypertension PAST SURGICAL HISTORY: 1. surgery lung cancer 2. Peg tube placement FAMILY HISTORY: Father: Mother: Siblings: Children: Hereditary Diseases: Unexpected deaths due to medical reasons: SOCIAL HISTORY: Marital status and/or living arrangements: Children: Employment: Tobacco use:positive history of smoking ETOH: Illicit drug use: IV drug use: Other relevant social factors: REVIEW OF SYSTEMS: CONSTITUTIONAL: Difficultly talking HEENT: [normal ]. CARDIOVASCULAR:no RESPIRATORY: sort of breath GENITOURINARY: . MUSCULOSKELETAL: . GASTROINTESTINAL: [ feeding tube in place upper abdomen soft ]. SKIN: . NEUROLOGICAL: . PSYCHIATRIC: . ENDOCRINE: . HEMATOLOGIC/LYMPHATIC: . ALLERGIC/IMMUNOLOGIC: . PHYSICAL EXAMINATION: VITAL SIGNS: Please see below. GENERAL APPEARANCE: awake , appears weak ,voice hard to understand HEENT: . RESPIRATORY: [diminished breath sound s CARDIOVASCULAR: [regular at the time of my exam ABDOMEN: [soft feedimg tube in place EXTREMITIES: . NEUROLOGICAL: . PSYCHIATRIC: . LABORATORY DATA: Please see below. ASSESSMENT/PLAN: 1. .admitted with pneumonia 2. . tongue cancer possible aspiration 3. prior history of COPD and lung cancer Treating pneumonia Agree with radiation oncology evaluation follow up in oncology office after discharge when stable. Vital Signs/I&O Vital Signs Date Time Temp Pulse Resp B/P (MAP) Pulse Ox O2 Delivery O2 Flow Rate FiO2 06/18/20 07:08 98.0 66 22 107/68 (81) 93 Room Air 06/18/20 04:00 4.0 I&O- Last 24 Hours up to 6 AM 06/18/20 06:00 Intake Total 2550 ml Output Total 375 ml Balance 2175 ml Laboratory Data Labs 24H Laboratory Tests 2 06/17/20 11:51: Immature Granulocyte % (Auto) 2.1, Neutrophils (%) (Auto) 88.7H, Lymphocytes (%) (Auto) 3.5L, Monocytes (%) (Auto) 5.3H, Eosinophils (%) (Auto) 0.0, Basophils (%) (Auto) 0.4, Neutrophils # (Auto) 14.4H, Lymphocytes # (Auto) 0.6L, Monocytes # (Auto) 0.9H, Eosinophils # (Auto) 0.0, Basophils # (Auto) 0.1, Nucleated Red Blood Cells % (auto) 0.0, Prothrombin Time 25.4H, Prothromb Time International Ratio 2.25, Anion Gap 5L, Glomerular Filtration Rate 36.3L, Lactic Acid Level 1.8, Calcium Level 8.4L, Iron Level 9L, Total Iron Binding Capacity 161L, Transferrin % Saturation 5.6L, Ferritin 308, Vitamin B12 Level 1826, Folate 20.9 06/17/20 13:41: POC pH (Misc Panel) 7.423, POC Base Excess (Misc Panel) -2.0, POC Saturated Percent O2 (Misc) 98, POC pO2 (Misc Panel) 102.0, POC pCO2 (Misc Panel) 34.4L, POC HCO3 (Misc Panel) 22.5, POC Total CO2 (Misc Panel) 23.0 06/18/20 05:22: Immature Granulocyte % (Auto) 1.2, Neutrophils (%) (Auto) 82.2H, Lymphocytes (%) (Auto) 9.0L, Monocytes (%) (Auto) 7.2H, Eosinophils (%) (Auto) 0.1, Basophils (%) (Auto) 0.3, Neutrophils # (Auto) 7.7, Lymphocytes # (Auto) 0.8L, Monocytes # (Auto) 0.7, Eosinophils # (Auto) 0.0, Basophils # (Auto) 0.0, Nucleated Red Blood Cells % (auto) 0.0, Prothrombin Time 15.9H, Prothromb Time International R atio 1.24, Anion Gap 6L, Glomerular Filtration Rate > 60.0, Calcium Level 8.2L 06/18/20 09:04: CBC/BMP Laboratory Tests 06/17/20 11:51 06/18/20 05:22 Microbiology Microbiology 06/17/20 Blood Culture, Received Pending 06/17/20 Respiratory Virus Panel (PCR) (NICOLASA) - Final, Complete 06/17/20 Blood Culture, Received Pending Allergies Coded Allergies: Tonjyhk-Lbs-Dtf Reductase Inhibitor (Verified Allergy, Unknown, 03/27/20) morphine (Verified Adverse Reaction, Intermediate, confusion and memory loss, 03/27/20) Home Medications Scheduled Aspirin (Ecotrin) 81 Mg Tablet.dr, 81 MG PO QHS, (Reported) Cyanocobalamin (Vitamin B-12) (Vitamin B-12) 500 Mcg Tablet, Unknown Dose IM QWEEK, (Reported) Fentanyl (Fentanyl) 25 Mcg Patch.td72, 1 PATCH TOP Q3DP, (Reported) Folic Acid (Folic Acid) 1 Mg Tablet, 1 MG PO DAILY, (Reported) Irbesartan (Irbesartan) 150 Mg Tablet, 150 MG PO DAILY, (Reported) Levetiracetam (Keppra) 500 Mg Tablet, 500 MG PO BID, (Reported) Nebivolol HCl (Bystolic) 5 Mg Tablet, 5 MG PO QHS, (Reported) Omeprazole (Omeprazole) 20 Mg Capsule.dr, 20 MG PO DAILY, (Reported) Pramipexole Di-HCl (Pramipexole Dihydrochloride) 1 Mg Tablet, 0.5 MG PO QHS, (Reported) Rivaroxaban (Xarelto) 20 Mg Tablet, 20 MG PO DAILY, (Reported) Venlafaxine HCl (Venlafaxine HCl ER) 75 Mg Cap.er.24h, 225 MG PO QHS, (Reported) Scheduled PRN Alprazolam (Alprazolam) 0.5 Mg Tablet, 0.5 MG PO Q8H PRN for ANXIETY/AGITATION, (Reported) Hydrocodone/Acetaminophen (Hydrocodone-Acetamin 5-325 mg) 1 Each Tablet, 2 TAB PO Q6H PRN for PAIN, (Reported) Oxycodone HCl (Oxycodone HCl) 5 Mg/5 Ml Solution, 10 ML GT Q6H PRN for BREAKTH ROUGH PAIN, (Reported) Trazodone HCl (Trazodone HCl) 50 Mg Tablet, 50 MG PO QHSP PRN for SLEEP, (Reported) BETY LENZ MD Jun 18, 2020 09:39
[2020-06-18 11:51] LABS: ABG BASE EXCESS 1.3 (-2.0-2.0); ABG HCO3 25.8 MEQ/L (22.0-26.0); ABG O2 SATURATION 98.3 % (95.0-99.0); ABG PARTIAL PRESSURE CO2 40.3 mmHg (35.0-45.0); ABG PARTIAL PRESSURE O2 109.3 mmHg (75.0-100.0); ABG STANDARD HCO3 25.6 MEQ/L (22.0-26.0); ABG pH (ARTERIAL) 7.424 UNITS (7.350-7.450)
--- NOTE | 2020-06-18 17:06 | RADONC.CN ---
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 He was unable to undergo definitive surgical resection due to the extent of disease. He presented to the ED on 06/17/20 with signs of sepsis and aspiration pneumonia (was previously scheduled for outpatient consultation this week), and so today is seen for consideration of chemoradiation while inpatient at the request of the hospitalist service. Diagnosis/Treatment History Oncologic History NSCLC 07/25/11 RUL lobectomy for stage I NSCLC 06/10/18 completed SBRT 60 Gy in 5 fractions for presumed RLL stage I NSCLC ([facility]) Oral Cavity SCC Presented February 2020 with an ulcerated left tongue mass. 03/05/20 CT neck showed no adenopathy 03/28/20 Biopsy ([place]) showing SCC 04/03/20 MRI with 3.9 cm lesion, borderline 1A LN [id number] 04/30/20 Evaluated by ENT @ [facility] ([facility]) with plan for resection 05/07/20 PET-CT with >5 cm avid lesion uptake in BL level II and level IA LN 06/03/20 Attempted resection aborted due to deep intrinsic tongue involvement 06/17/20 Admitted with aspiration pneumonia ([facility]) Interval History Patient seen at bedside. He appears in pain. States he is unable to take anything by mouth except for liquids. He is hard of hearing and speaks with difficulty. States his breathing is improved but that he doesn't have much recollection of what brought him in to the hospital. States oral pain is awful. I called his Lara (with his permission) she stated that overall his pain and pulmonary status has worsened steadily over the past week or two. He has been able to take PO fluids in recent days, but not solid foods. His nutrition has been increasingly per PEG. His mental status was previously entirely clear, but since yesterday he has been lethargic and confused to delirious (when he was brought to the hospital). Past Medical History: HTN Macrocytic anemia DVT/PE Chronic pain Past Surgical History: As above Family History: Father NSCLC Social History: Former smoker 40 pack year Drinks alcohol daily Allergies / Meds Allergies: Coded Allergies: Gpugmxv-[id number]-Mhv Reductase Inhibitor (Verified Allergy, Unknown, 03/27/20) morphine (Verified Adverse Reaction, Intermediate, confusion and memory loss, 03/27/20) Home Meds Reported Medications Rivaroxaban (Xarelto) 20 Mg Tablet, 20 MG PO DAILY, TAB 06/17/20 Venlafaxine HCl (Venlafaxine HCl ER) 75 Mg Cap.er.24h, 225 MG PO QHS 06/17/20 Oxycodone HCl (Oxycodone HCl) 5 Mg/5 Ml Solution, 10 ML GT Q6H PRN for BREAKTHR OUGH PAIN 06/17/20 Fentanyl (Fentanyl) 25 Mcg Patch.td72, 1 PATCH TOP Q3DP 06/17/20 Aspirin (Ecotrin) 81 Mg Tablet.dr, 81 MG PO QHS 06/17/20 Omeprazole (Omeprazole) 20 Mg Capsule.dr, 20 MG PO DAILY, CAP 03/27/20 Irbesartan (Irbesartan) 150 Mg Tablet, 150 MG PO DAILY, TAB 03/27/20 Folic Acid (Folic Acid) 1 Mg Tablet, 1 MG PO DAILY 03/27/20 Cyanocobalamin (Vitamin B-12) (Vitamin B-12) 500 Mcg Tablet, IM QWEEK, TAB 03/27/20 Nebivolol HCl (Bystolic) 5 Mg Tablet, 5 MG PO QHS, TAB 03/27/20 Trazodone HCl (Trazodone HCl) 50 Mg Tablet, 50 MG PO QHSP PRN for SLEEP, TAB 03/27/20 Alprazolam (Alprazolam) 0.5 Mg Tablet, 0.5 MG PO Q8H PRN for ANXIETY/AGITATION 03/27/20 Pramipexole Di-HCl (Pramipexole Dihydrochloride) 1 Mg Tablet, 0.5 MG PO QHS, TAB 03/27/20 Levetiracetam (Keppra) 500 Mg Tablet, 500 MG PO BID, TAB 03/27/20 Hydrocodone/Acetaminophen (Hydrocodone-Acetamin 5-325 mg) 1 Each Tablet, 2 TAB PO Q6H PRN for PAIN 03/27/20 Discontinued Reported Medications Duloxetine Hcl (Duloxetine HCl) 30 Mg Capsule.dr, 90 MG PO QHS, CAP 06/17/20 Magnesium Oxide (Magox 400) 400 Mg Tablet, 400 MG PO DAILY, TAB 03/27/20 Potassium Chloride (Potassium Chloride) 10 Meq Tab.er.prt, 10 MEQ PO BID, TAB 03/27/20 [vitamin b1] No Conflict Check, PO DAILY 03/27/20 Multivitamin (Multivitamins) 1 Each Capsule, 1 CAP PO DAILY, CAP 03/27/20 Rivaroxaban (Xarelto) 10 Mg Tablet, 20 MG PO DAILY, TAB 03/27/20 Duloxetine Hcl (Duloxetine HCl) 30 Mg Capsule.dr, 90 MG PO DAILY, CAP 03/27/20 Review of Systems General: Reports: ROS Unobtainable (Patient mental status/pain precluding) Vital Signs Vital Signs Date Time Temp Pulse Resp B/P (MAP) Pulse Ox O2 Delivery O2 Flow Rate FiO2 06/18/20 14:45 98.3 69 22 165/70 22 Nasal Cannula 2.0 General Exam: Positive: Alert, Cooperative, Moderate Distress Eye Exam: Positive: PERRLA, EOMI ENT EXAM: Positive: Other ENT (There is a ~7.5 cm centrally ulcerated mass in the left oral tongue crossing midline, the left tongue is fixed and on palpation there is involvement of the FOM and intrinsic tongue muscles, I was unable to pa lpate the BOT due to pain and tenderness. In the left neck there is a palpable firm but mobile level II LN. I did not palpate any notes on the right or in the submental region. ) Chest Exam: Positive: Clear to auscultation, Rales Heart Exam: Positive: Rate Normal, Regular Rhythm Abdomen Exam: Positive: Normal bowel sounds, Soft Extremity Exam: Negative: Edema Skin Exam: Positive: Nl turgor and temperature Neuro Exam: Positive: Cranial Nerves 3-12 NL; Negative: Normal Speech Psych Exam: Negative: Mental status NL Diagnostic and Laboratory Diagnostic Review Radiologic images, relevant labs and pathology reports were personally reviewed and discussed with Mr. Salguero. Laboratory Tests 06/17/20 11:51 06/18/20 05:22 06/18/20 09:04 Laboratory Tests 06/17/20 11:51: White Blood Count 16.3H, Red Blood Count 2.23L, Hemoglobin 7.5L, Hematocrit 24.1L, Mean Corpuscular Volume 108.1H, Mean Corpuscular Hemoglobin 33.6H, Mean Corpuscular Hemoglobin Concent 31.1L, Red Cell Distribution Width 14.7H, Platelet Count 245, Immature Granulocyte % (Auto) 2.1, Neutrophils (%) (Auto) 88.7H, Lymphocytes (%) (Auto) 3.5L, Monocytes (%) (Auto) 5.3H, Eosinophils (%) (Auto) 0.0, Basophils (%) (Auto) 0.4, Neutrophils # (Auto) 14.4H, Lymphocytes # (Auto) 0.6L, Monocytes # (Auto) 0.9H, Eosinophils # (Auto) 0.0, Basophils # (Auto) 0.1, Nucleated Red Blood Cells % (auto) 0.0, Prothrombin Time 25.4H, Prothromb Time International Ratio 2.25, Sodium Level 137, Potassium Level 4.4, Chloride Level 104, Carbon Dioxide Level 28, Anion Gap 5L, Blood Urea Nitrogen 85H, Creatinine 1.95H, Glomerular Filtration Rate 36.3L, Fasting Glucose 110H, Lactic Acid Level 1.8, Calcium Level 8.4L, Iron Level 9L, Total Iron Binding Capacity 161L, Transferrin % Saturation 5.6L, Ferritin 308, Vitamin B12 Level 1826, Folate 20.9 06/17/20 13:41: POC pH (Misc Panel) 7.423, POC Base Excess (Misc Panel) -2.0, POC Saturated Percent O2 (Misc) 98, POC pO2 (Misc Panel) 102.0, POC pCO2 (Misc Panel) 34.4L, POC HCO3 (Misc Panel) 22.5, POC Total CO2 (Misc Panel) 23.0 06/17/20 14:58: Lab Scanned Report LAB OTHER 06/18/20 05:22: White Blood Count 9.4, Red Blood Count 2.01L, Hemoglobin 6.8*L, Hematocrit 22.2L, Mean Corpuscular Volume 110.4H, Mean Corpuscular Hemoglobin 33.8H, Mean Corpuscular Hemoglobin Concent 30.6L, Red Cell Distribution Width 14.6H, Platelet Count 218, Immature Granulocyte % (Auto) 1.2, Neutrophils (%) (Auto) 82.2H, Lymphocytes (%) (Auto) 9.0L, Monocytes (%) (Auto) 7.2H, Eosinophils (%) (Auto) 0.1, Basophils (%) (Auto) 0.3, Neutrophils # (Auto) 7.7, Lymphocytes # (Auto) 0.8L, Monocytes # (Auto) 0.7, Eosinophils # (Auto) 0.0, Basophils # (Auto) 0.0, Nucleated Red Blood Cells % (auto) 0.0, Prothrombin Time 15.9H, P rothromb Time International Ratio 1.24, Sodium Level 142, Potassium Level 4.3, Chloride Level 111H, Carbon Dioxide Level 25, Anion Gap 6L, Blood Urea Nitrogen 53H, Creatinine 1.08, Glomerular Filtration Rate > 60.0, Fasting Glucose 95, Calcium Level 8.2L 06/18/20 09:04: Hemoglobin 6.7*L, Hematocrit 21.9L, Reticulocyte # (auto) 36.8, Differential Slide Review Report, Peripheral Blood Smear Path Consult PERIPHERAL SMEAR, Percent Reticulocyte Count 1.8H, Reticulocyte Hemoglobin Equivalent 21.9L 06/18/20 11:26: Ammonia 20 06/18/20 11:41: Blood Gas Bicarbonate Standard 25.6, Arterial Blood pH 7.424, Arterial Blood Partial Pressure CO2 40.3, Arterial Blood Partial Pressure O2 109.3H, Arterial Blood Total CO2 27.0, Arterial Blood HCO3 25.8, Arterial Blood Base Excess 1.3, Arterial Blood Oxygen Saturation 98.3 06/18/20 13:45: Urine Color YELLOW, Urine Appearance CLOUDYH, Urine pH 5.0, Urine Specific [place] 1.016, Urine Protein NEGATIVE, Urine Glucose (UA) NEGATIVE, Urine Ketones NEGATIVE, Urine Blood 1+H, Urine Nitrite NEGATIVE, Urine Bilirubin NEGATIVE, Urine Urobilinogen 0.2, Urine Leukocyte Esterase NEGATIVE, Urine WBC (Auto) 0, Urine RBC (Auto) 1, Urine Hyaline Casts (Auto) 0, Urine Bacteria (Auto) NEGATIVE, Urine Squamous Epithelial Cells 0, Urine Calcium Oxalate Cryst (Auto) SMALL, Urine Mucus (Auto) SMALL, Urine Sperm (Auto) Assessment and Plan Impression Mr. 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 He was unable to undergo definitive surgical resection due to the extent of disease. He presented to the ED on 06/17/20 with signs of sepsis and aspiration pneumonia (was previously scheduled for outpatient consultation this week), and so today is seen for consideration of chemoradiation while inpatient at the request of the hospitalist service. Stage Stage GRISELDA [id number] SCC of the left oral tongue Performance Status ECOG 3 Plan We had an extensive discussion with Mr. Salguero regarding the diagnosis at hand and available therapeutic options. The patient is being treated for aspiration pneumonia, possibly due to respiratory depression from increased fentanyl patch combined with overzealous tube feeding. I am hopeful he will make a meaningful recovery so that cancer directed therapy will begin. I explained to him (not sure how much of what I said registered with him), and his (she was very pleasant and understanding on the phone), that for de finitive treatment to begin his pain control will need to be optimized, his pulmonary infection cleared and his nutritional status improved. To that end I recommend involving COMMUNICATIONS ADMINISTRATOR and nutrition now, and home care services upon discharge (it essential given the rigors of chemoradiation for oral cavity cancer) that the patient have a feeding and hydration regimen that will maintain his weight and hopefully prevent subsequent aspiration events. If this doesn't work and aspiration continues then he will need a trach to protect his airway. With regard to his pain, he would certainly benefit from palliative care involvement as he will have lifelong symptoms and debility from this tumor and its treatment. Once he is out of the hospital I will follow up with him and his and discuss proceeding with definitive treatment versus alternative palliative approaches Briefly I did discuss with his that concurrent chemoradiation is 70 Gy in 35 fractions, chemo can be weekly or q3w, and that treatment would be preceded by laryngoscopic evaluation in my office as well as repeat CT neck with contrast due to the apparent growth of the tumor and clinically involved LN since the time of PET-CT. This scan does not need to be done inpatient as I note he has acute kidney injury and would not be well-served by IVC at this time. If he does not improve from his acute condition meaningfully, or continues to decline functionally, then palliative RT could be considered. We instructed the patient and his that if there were any questions,concerns or changes in clinical status in the interim to contact us. Recommendations Recommend COMMUNICATIONS ADMINISTRATOR, nutrition, palliative care consults while inpatient Would probably benefit from home nursing care on discharge if not already arranged I do not recommend urgent RT while inpatient I will arrange prompt outpatient follow up with me once he is discharged RON VALVERDE MD Jun 18, 2020 17:06
[2020-06-18 19:09] LABS: HEMATOCRIT 26.7 % (42.0-52.0); HEMOGLOBIN 8.4 g/dl (13.5-17.5)
[2020-06-18] MEDS ORDERED: ASPIRIN 81 MG CHEW TABLET PO SCH (21:00)
[2020-06-19] VITALS (7 sets, daily range): BP systolic 155–169; BP diastolic 66–82
[2020-06-19] MEDS: IPRATROPIUM 0.5MG/ALBUTEROL 2.5MG INH SOL UD 3ML (DUONEB) NEB SCH ×4 (02:00→19:25)
[2020-06-19] MEDS: PIPERACILLIN/TAZOBACTAM SOD 2.25 GM in D5W MINI-BAG PLUS 50 ML IV SCH ×4 (03:58→20:31)
[2020-06-19 05:41] LABS: BASO % 0.3 % (0.0-1.0); HEMATOCRIT 29.4 % (42.0-52.0); HEMOGLOBIN 9.3 g/dl (13.5-17.5); LYMPH # 0.7 10^3/uL (1.5-5.0); MEAN CORPUSCULAR HEMOGLOBIN 32.6 pg (27.0-33.0); MEAN CORPUSCULAR HGB CONC 31.6 g/dl (32.0-36.5); MEAN CORPUSCULAR VOLUME 103.2 fl (80.0-96.0); MONO # 0.7 10^3/uL (0.0-0.8); MONO % 7.1 % (0.0-5.0); NEUTROPHILS # 7.7 10^3/uL (1.5-8.5); NEUTROPHILS % 83.6 % (36.0-66.0); PLATELET COUNT, AUTOMATED 238 10^3/uL (150-450); RED BLOOD COUNT 2.85 10^6/uL (4.30-6.10); WHITE BLOOD COUNT 9.2 10^3/uL (4.0-10.0)
[2020-06-19 05:54] LABS: INR 1.26; PROTHROMBIN TIME 16.1 SECONDS (12.5-14.3)
[2020-06-19 06:04] LABS: BLOOD UREA NITROGEN 30 MG/DL (7-18); CALCIUM LEVEL 8.8 MG/DL (8.8-10.2); CARBON DIOXIDE LEVEL 25 MEQ/L (21-32); CHLORIDE LEVEL 112 MEQ/L (98-107); CREATININE FOR GFR 0.77 MG/DL (0.70-1.30); GLOMERULAR FILTRATION RATE > 60.0 (>42); GLUCOSE, FASTING 106 MG/DL (70-100); POTASSIUM SERUM 4.5 MEQ/L (3.5-5.1); SODIUM LEVEL 145 MEQ/L (136-145)
[2020-06-19] MEDS: PANTOPRAZOLE 40MG VIAL (C9113 PER 1) IV SCH (10:00)
[2020-06-19] MEDS: levETIRAcetam 250MG TABLET (KEPPRA) PEG SCH ×2 (10:01→20:31)
[2020-06-19] MEDS: RIVAROXABAN 20 MG TAB (XARELTO) PO SCH (10:01)
[2020-06-19] MEDS: VENLAFAXINE 37.5 MG TAB PEG SCH ×2 (10:01→20:31)
--- NOTE | 2020-06-19 11:03 | IPNPDOC ---
Date Seen The patient was seen on 06/19/20. Progress Note Subjective: Patient is less talkative today, despite normal ABG yesterday. Telemetry was unremarkable Patient has had no melena, black tarry stools, hematemesis or bright blood per rectum. Appropriate increase in hemoglobin after rbc transfusion. Per RN, patient refused Mouth care due to fear of pain from tongue cancer. Started on tube feedings today According to florist helper recommendations Objective: PE vitals see below GEN: Disheveled. Response to his name but does not speak no cyanosis trachea midline HEENT: tongue ca. no JVD + use resp acc mm Lungs: b/l rhonchi, diminished. Heart: S1 S2 RRR Abd: +bs x 4 quadrants soft nt nd. feeding tube on left clean w/o erythema Diaper with feces, currently being cleaned ext: no c/c/e Laboratory data, imaging: see below, reviewed. ASSESSMENT: 69 year old male with stage 4 tongue cancer admitted for FELIX, sepsis, Aspiration PNA, and acute metab encephalopathy. Aspiration pneumonia Sepsis Acute metabolic encephalopathy. Acute respiratory failure with Hypoxia FELIX, resolved hypertension symptomatic chronic Macrocytic Anemia Stage 4 Tongue cancer Chronic pain H/o DVT and PE colon polyps aortic aneurysm Mclaughlin's esophagus COPD arthritis PLAN: Patient remains encephalopathic despite optimized treatment, supportive care with IV antibiotics, tube feedings, frequent reorientation. ABG yesterday was within normal limits. No signs of hypercarbia or hypercapnic respiratory failure. Continue with supplemental oxygen. PT, OT. Encourage early ambulation out of bed to chair 4 times a day and assisted ambulation, fall precautions, med onc and radonc Been consulted for prognostic purposes. Per radiation oncologist."Recommend RIGGING ENGINEER, nutrition, palliative care consults while inpatient Would probably benefit from home nursing care on discharge if not already arranged I do not recommend urgent RT while inpatient I will arrange prompt outpatient follow up with me once he is discharged" VS, I&O, 24H, Mono Vital Signs/I&O Vital Signs Date Time Temp Pulse Resp B/P (MAP) Pulse Ox O2 Delivery O2 Flow Rate FiO2 06/19/20 07:05 98.0 65 24 167/74 (105) 96 Room Air 06/19/20 04:00 0.0 I&O- Last 24 Hours up to 6 AM 06/19/20 06:00 Intake Total 900 ml Output Total 650 ml Balance 250 ml Laboratory Data 24H LABS Laboratory Tests 2 06/18/20 11:26: Ammonia 20 06/18/20 11:41: Blood Gas Bicarbonate Standard 25.6, Arterial Blood pH 7.424, Arterial Blood Partial Pressure CO2 40.3, Arterial Blood Partial Pressure O2 109.3H, Arterial Blood Total CO2 27.0, Arterial Blood HCO3 25.8, Arterial Blood Base Excess 1.3, Arterial Blood Oxygen Saturation 98.3 06/18/20 13:45: Urine Color YELLOW, Urine Appearance CLOUDYH, Urine pH 5.0, Urine Specific [place] 1.016, Urine Protein NEGATIVE, Urine Glucose (UA) NEGATIVE, Urine Ketones NEGATIVE, Urine Blood 1+H, Urine Nitrite NEGATIVE, Urine Bilirubin NEGATIVE, Urine Urobilinogen 0.2, Urine Leukocyte Esterase NEGATIVE, Urine WBC (Auto) 0, Urine RBC (Auto) 1, Urine Hyaline Casts (Auto) 0, Urine Bacteria (Auto) NEGATIVE, Urine Squamous Epithelial Cells 0, Urine Calcium Oxalate Cryst (Auto) SMALL, Urine Mucus (Auto) SMALL, Urine Sperm (Auto) 06/19/20 05:15: Immature Granulocyte % (Auto) 1.0, Neutrophils (%) (Auto) 83.6H, Lymphocytes (%) (Auto) 8.0L, Monocytes (%) (Auto) 7.1H, Eosinophils (%) (Auto) 0.0, Basophils (%) (Auto) 0.3, Neutrophils # (Auto) 7.7, Lymphocytes # (Auto) 0.7L, Monocytes # (Auto) 0.7, Eosinophils # (Auto) 0.0, Basophils # (Auto) 0.0, Nucleated Red Blood Cells % (auto) 0.0, Prothrombin Time 16.1H, Prothromb Time International Ratio 1.26, Anion Gap 8, Glomerular Filtration Rate > 60.0, Calcium Level 8.8 CBC/BMP Laboratory Tests 06/18/20 18:55 06/19/20 05:15 Microbiology Microbiology 06/19/20 Stool Occult Blood ([facility]) - Final, Complete 06/17/20 Blood Culture - Preliminary, Resulted No growth after 24 hours . All specim... 06/17/20 Respiratory Virus Panel (PCR) ([facility]) - Final, Complete 06/17/20 Blood Culture - Preliminary, Resulted No growth after 24 hours . All specim... DERICK ROD MD Jun 19, 2020 11:01
[2020-06-19] MEDS ORDERED: ALPRAZolam 0.25 MG TAB PEG ONE (14:00)
[2020-06-19] MEDS ORDERED: NON-FORMULARY 1 EA EA PO PRN (14:45)
[2020-06-19 14:48] LABS: ABG BASE EXCESS 1.1 (-2.0-2.0); ABG HCO3 24.1 MEQ/L (22.0-26.0); ABG O2 SATURATION 93.7 % (95.0-99.0); ABG PARTIAL PRESSURE CO2 32.7 mmHg (35.0-45.0); ABG PARTIAL PRESSURE O2 68.6 mmHg (75.0-100.0); ABG STANDARD HCO3 25.4 MEQ/L (22.0-26.0); ABG TOTAL CO2 25.1 MEQ/L (23.0-31.0); ABG pH (ARTERIAL) 7.485 UNITS (7.350-7.450)
[2020-06-19] MEDS ORDERED: oxyCODONE 5MG TAB PEG PRN (16:00)
[2020-06-19] MEDS: ALPRAZolam 0.5 MG TAB PO PRN (18:28)
[2020-06-19] MEDS: ASPIRIN 81 MG CHEW TABLET PEG SCH (20:31)
[2020-06-19] MEDS: PRAMIPEXOLE 0.25 MG TAB PO SCH (20:31)
[2020-06-20] MEDS: IPRATROPIUM 0.5MG/ALBUTEROL 2.5MG INH SOL UD 3ML (DUONEB) NEB SCH ×4 (02:00→19:32)
[2020-06-20] MEDS: NORCO, ANEXSIA 5/325MG TABLET (HYDROcodone/ACETAMINOPHEN) PO PRN ×2 (02:37→20:44)
[2020-06-20] MEDS: PIPERACILLIN/TAZOBACTAM SOD 2.25 GM in D5W MINI-BAG PLUS 50 ML IV SCH ×4 (02:38→20:39)
[2020-06-20 06:00] VITALS: BP 136/85
[2020-06-20 06:34] LABS: BASO % 0.2 % (0.0-1.0); HEMOGLOBIN 8.7 g/dl (13.5-17.5); LYMPH % 10.5 % (24.0-44.0); MEAN CORPUSCULAR HEMOGLOBIN 31.9 pg (27.0-33.0); MEAN CORPUSCULAR HGB CONC 31.1 g/dl (32.0-36.5); MEAN CORPUSCULAR VOLUME 102.6 fl (80.0-96.0); MONO % 10.9 % (0.0-5.0); NEUTROPHILS % 77.5 % (36.0-66.0); PLATELET COUNT, AUTOMATED 217 10^3/uL (150-450); RED BLOOD COUNT 2.73 10^6/uL (4.30-6.10); WHITE BLOOD COUNT 9.1 10^3/uL (4.0-10.0)
[2020-06-20 06:43] LABS: INR 1.28; PROTHROMBIN TIME 16.3 SECONDS (12.5-14.3)
[2020-06-20 07:00] LABS: BLOOD UREA NITROGEN 31 MG/DL (7-18); CALCIUM LEVEL 9.2 MG/DL (8.8-10.2); CARBON DIOXIDE LEVEL 26 MEQ/L (21-32); CHLORIDE LEVEL 113 MEQ/L (98-107); CREATININE FOR GFR 0.84 MG/DL (0.70-1.30); GLOMERULAR FILTRATION RATE > 60.0 (>42); GLUCOSE, FASTING 139 MG/DL (70-100); POTASSIUM SERUM 3.8 MEQ/L (3.5-5.1); SODIUM LEVEL 146 MEQ/L (136-145)
[2020-06-20] MEDS: VENLAFAXINE 37.5 MG TAB PEG SCH ×2 (09:30→20:39)
[2020-06-20] MEDS: PANTOPRAZOLE 40MG VIAL (C9113 PER 1) IV SCH (09:30)
[2020-06-20] MEDS: RIVAROXABAN 20 MG TAB (XARELTO) PO SCH (09:30)
[2020-06-20] MEDS: levETIRAcetam 250MG TABLET (KEPPRA) PEG SCH ×2 (09:30→20:39)
[2020-06-20] MEDS: ALPRAZolam 0.5 MG TAB PO PRN ×2 (09:33→20:39)
[2020-06-20] MEDS ORDERED: AUGM875T28 PO (12:21)
[2020-06-20] MEDS ORDERED: BACI1CAP PO (12:21)
--- NOTE | 2020-06-20 12:29 | IPNPDOC ---
Date Seen The patient was seen on 06/20/20. Progress Note Subjective: tachypneic and anxious yesterday, combative w staff, improved when pt was resumed on his home xanax and pain meds. still c/o pain in tongue and odynophagia. on tube feeds, begging to drink wateryesterday. no fever/cough or sob. Objective: PE vitals see below GEN: Disheveled. anxious no pallor. HEENT: tongue ca. no JVD + use resp acc mm Lungs: b/l rhonchi, diminished breath sounds Heart: S1 S2 RRR Abd: +bs x 4 quadrants soft nt nd. feeding tube on left clean w/o erythema Diaper with feces, currently being cleaned ext: no c/c/e Laboratory data, imaging: see below, reviewed. ASSESSMENT: 69 year old male with stage 4 tongue cancer admitted for FELIX, sepsis, Aspiration PNA, and acute metab encephalopathy. Aspiration pneumonia Sepsis Acute metabolic encephalopathy. Acute respiratory failure with Hypoxia FELIX, resolved hypertension symptomatic chronic Macrocytic Anemia Stage 4 Tongue cancer Chronic pain H/o DVT and PE colon polyps aortic aneurysm Mclaughlin's esophagus COPD arthritis anxiety PLAN: pt hse. clinically improving with iv abx w/o fever, cough and normal wbc. can change to augmentin at discharge. medonc and radonc consulted. if cleared by pt, may dc in am. on tube feeds, thread cutter tender consulted. VS, I&O, 24H, Fishbone Vital Signs/I&O Vital Signs Date Time Temp Pulse Resp B/P (MAP) Pulse Ox O2 Delivery O2 Flow Rate FiO2 06/20/20 06:00 98.6 80 24 136/85 (102) 95 Room Air 06/19/20 04:00 0.0 I&O- Last 24 Hours up to 6 AM 06/20/20 06:00 Intake Total 100 ml Output Total 100 ml Balance 0 ml Laboratory Data 24H LABS Laboratory Tests 2 06/19/20 14:30: Blood Gas Bicarbonate Standard 25.4, Arterial Blood pH 7.485H, Arterial Blood Partial Pressure CO2 32.7L, Arterial Blood Partial Pressure O2 68.6L, Arterial Blood Total CO2 25.1, Arterial Blood HCO3 24.1, Arterial Blood Base Excess 1.1, Arterial Blood Oxygen Saturation 93.7L 06/20/20 06:08: Immature Granulocyte % (Auto) 0.9, Neutrophils (%) (Auto) 77.5H, Lymphocytes (%) (Auto) 10.5L, Monocytes (%) (Auto) 10.9H, Eosinophils (%) (Auto) 0.0, Basophils (%) (Auto) 0.2, Neutrophils # (Auto) 7.0, Lymphocytes # (Auto) 1.0L, Monocytes # (Auto) 1.0H, Eosinophils # (Auto) 0.0, Basophils # (Auto) 0.0, Nucleated Red Blood Cells % (auto) 0.0, Prothrombin Time 16.3H, Prothromb Time International Ratio 1.28, Anion Gap 7L, Glomerular Filtration Rate > 60.0, Calcium Level 9.2 CBC/BMP Laboratory Tests 06/20/20 06:08 Microbiology Microbiology 06/19/20 Stool Occult Blood ([facility]) - Final, Complete 06/17/20 Blood Culture - Preliminary, Resulted No Growth after 48 hours. All Specime... 06/17/20 Respiratory Virus Panel (PCR) ([facility]) - Final, Complete 06/17/20 Blood Culture - Preliminary, Resulted No Growth after 72 hours. All specime... DERICK ROD MD Jun 20, 2020 12:29
[2020-06-20] MEDS: ASPIRIN 81 MG CHEW TABLET PEG SCH (20:38)
[2020-06-20] MEDS: PRAMIPEXOLE 0.25 MG TAB PO SCH (20:39)
[2020-06-20 22:00] VITALS: BP 147/76
[2020-06-21] MEDS: IPRATROPIUM 0.5MG/ALBUTEROL 2.5MG INH SOL UD 3ML (DUONEB) NEB SCH ×3 (02:00→13:25)
[2020-06-21] MEDS: PIPERACILLIN/TAZOBACTAM SOD 2.25 GM in D5W MINI-BAG PLUS 50 ML IV SCH ×3 (02:42→14:19)
[2020-06-21 06:00] VITALS: BP 147/74
[2020-06-21 06:20] LABS: BASO % 0.1 % (0.0-1.0); EOS # 0.1 10^3/uL (0.0-0.5); HEMATOCRIT 27.4 % (42.0-52.0); HEMOGLOBIN 8.7 g/dl (13.5-17.5); LYMPH # 0.9 10^3/uL (1.5-5.0); LYMPH % 13.3 % (24.0-44.0); MEAN CORPUSCULAR HEMOGLOBIN 32.8 pg (27.0-33.0); MEAN CORPUSCULAR HGB CONC 31.8 g/dl (32.0-36.5); MEAN CORPUSCULAR VOLUME 103.4 fl (80.0-96.0); MONO # 0.9 10^3/uL (0.0-0.8); MONO % 12.6 % (0.0-5.0); NEUTROPHILS # 4.9 10^3/uL (1.5-8.5); NEUTROPHILS % 72.3 % (36.0-66.0); PLATELET COUNT, AUTOMATED 254 10^3/uL (150-450); RED BLOOD COUNT 2.65 10^6/uL (4.30-6.10); WHITE BLOOD COUNT 6.8 10^3/uL (4.0-10.0)
[2020-06-21 06:29] LABS: INR 1.21; PROTHROMBIN TIME 15.6 SECONDS (12.5-14.3)
[2020-06-21 06:38] LABS: BLOOD UREA NITROGEN 28 MG/DL (7-18); CALCIUM LEVEL 9.1 MG/DL (8.8-10.2); CARBON DIOXIDE LEVEL 28 MEQ/L (21-32); CHLORIDE LEVEL 114 MEQ/L (98-107); CREATININE FOR GFR 0.85 MG/DL (0.70-1.30); GLOMERULAR FILTRATION RATE > 60.0 (>42); GLUCOSE, FASTING 121 MG/DL (70-100); POTASSIUM SERUM 3.5 MEQ/L (3.5-5.1); SODIUM LEVEL 147 MEQ/L (136-145)
[2020-06-21] MEDS: levETIRAcetam 250MG TABLET (KEPPRA) PEG SCH (08:19)
[2020-06-21] MEDS: RIVAROXABAN 20 MG TAB (XARELTO) PO SCH (08:19)
[2020-06-21] MEDS: VENLAFAXINE 37.5 MG TAB PEG SCH (08:19)
[2020-06-21] MEDS: PANTOPRAZOLE 40MG VIAL (C9113 PER 1) IV SCH (08:19)
--- NOTE | 2020-06-21 10:42 | DS.PDOC ---
Discharge Summary General Date of Admission Jun 17, 2020 at 14:58 Date of Discharge 06/21/20 discharged to acute rehab unit Discharge Summary DISCHARGE DIAGNOSES: Aspiration pneumonia Sepsis Acute metabolic encephalopathy. Anemia requiring 3 units RBC transfusion Acute respiratory failure with Hypoxia FELIX, resolved hypertension symptomatic chronic Macrocytic Anemia Stage 4 Tongue cancer, squamous cell carcinoma below Dr. Ryan Chronic pain H/o DVT and PE colon polyps aortic aneurysm Mclaughlin's esophagus COPD arthritis anxiety DISCHARGE MEDICATIONS: See below CONSULTANTS: RADIATION ONCOLOGIST DR. VALVERDE. MEDICAL ONCOLOGIST, DR. LENZ. HOSPITAL COURSE: 69-year-old male with history of tongue cancer, presented to the emergency room with 3 day history of altered mental status with dizziness, weakness and lethargy with productive cough despite having feeding tube with 2 cans a day and nothing by mouth status. Patient was started on fentanyl about a week ago and has been much more lethargic and confused. Patient was admitted for acute encephalopathy and found to have aspiration pneumonia. Patient's fentanyl patch and pain medications were held. Mentation improved, but he did develop severe anxiety and hyperventilation. Arterial blood gases were within normal limits without signs of respiratory acidosis or hypercapnic respiratory failure. Telemetry was unremarkable. Remained in sinus rhythm. Patient was kept on intravenous Without fever, chills. White count was normal. Patient is here 3 units of RBC transfusion after being found to be anemic with 6.7, hemoglobin with no signs of acute GI bleed. He denied any mental hematemesis, bright red blood per rectum, melena, black tarry stools. Patient was seen by both his medical oncologist and radiation oncologist with recommendations to follow up as outpatient. Patient was debilitated, but cooperative and was appropriate for acute rehabilitation unit. DISCHARGE PE vitals see below GEN: Disheveled. anxious no pallor. , No respiratory distress or HEENT: tongue ca. no JVD Lungs: b/l rhonchi, diminished breath sounds Heart: S1 S2 RRR Abd: +bs x 4 quadrants soft nt nd. feeding tube on left clean w/o erythema Diaper with feces, currently being cleaned ext: no c/c/e Laboratory data, imaging: see below, reviewed. TIME SPENT ON DISCHARGE 30 MINUTES Vital Signs/I&Os Vital Signs Date Time Temp Pulse Resp B/P (MAP) Pulse Ox O2 Delivery O2 Flow Rate FiO2 06/21/20 06:00 97.9 77 28 147/74 (98) 93 Room Air 06/19/20 04:00 0.0 I&O- Last 24 Hours up to 6 AM 06/21/20 06:00 Intake Total 150 ml Balance 150 ml Laboratory Data Labs 24H Laboratory Tests 2 06/21/20 06:04: Immature Granulocyte % (Auto) 0.7, Neutrophils (%) (Auto) 72.3H, Lymphocytes (%) (Auto) 13.3L, Monocytes (%) (Auto) 12.6H, Eosinophils (%) (Auto) 1.0, Basophils (%) (Auto) 0.1, Neutrophils # (Auto) 4.9, Lymphocytes # (Auto) 0.9L, Monocytes # (Auto) 0.9H, Eosinophils # (Auto) 0.1, Basophils # (Auto) 0.0, Nucleated Red Blood Cells % (auto) 0.0, Prothrombin Time 15.6H, Prothromb Time International Ratio 1.21, Anion Gap 5L, Glomerular Filtration Rate > 60.0, Calcium Level 9.1 CBC/BMP Laboratory Tests 06/21/20 06:04 Microbiology Microbiology 06/19/20 Stool Occult Blood (NICOLASA) - Final, Complete 06/17/20 Blood Culture - Preliminary, Resulted No Growth after 72 hours. All specime... 06/17/20 Respiratory Virus Panel (PCR) (NICOLASA) - Final, Complete 06/17/20 Blood Culture - Preliminary, Resulted No Growth after 72 hours. All specime... Discharge Medications Scheduled Amoxicillin/Potassium Clav (Augmentin 875-125 Tablet) 1 Each Tablet, 1 TAB PO BID Aspirin (Ecotrin) 81 Mg Tablet.dr, 81 MG PO QHS, (Reported) Bacillus Coagulans (Bacid with Lactospore) 1 Each Capsule, 1 CAP PO TID Cyanocobalamin (Vitamin B-12) (Vitamin B-12) 500 Mcg Tablet, Unknown Dose IM QWEEK, (Reported) Fentanyl (Fentanyl) 25 Mcg Patch.td72, 1 PATCH TOP Q3DP, (Reported) Folic Acid (Folic Acid) 1 Mg Tablet, 1 MG PO DAILY, (Reported) Irbesartan (Irbesartan) 150 Mg Tablet, 150 MG PO DAILY, (Reported) Levetiracetam (Keppra) 500 Mg Tablet, 500 MG PO BID, (Reported) Nebivolol HCl (Bystolic) 5 Mg Tablet, 5 MG PO QHS, (Reported) Omeprazole (Omeprazole) 20 Mg Capsule.dr, 20 MG PO DAILY, (Reported) Pramipexole Di-HCl (Pramipexole Dihydrochloride) 1 Mg Tablet, 0.5 MG PO QHS, (Reported) Rivaroxaban (Xarelto) 20 Mg Tablet, 20 MG PO DAILY, (Reported) Venlafaxine HCl (Venlafaxine HCl ER) 75 Mg Cap.er.24h, 225 MG PO QHS, (Reported) Scheduled PRN Alprazolam (Alprazolam) 0.5 Mg Tablet, 0.5 MG PO Q8H PRN for ANXIETY/AGITATION, (Reported) Hydrocodone/Acetaminophen (Hydrocodone-Acetamin 5-325 mg) 1 Each Tablet, 2 TAB PO Q6H PRN for PAIN, (Reported) Oxycodone HCl (Oxycodone HCl) 5 Mg/5 Ml Solution, 10 ML GT Q6H PRN for EVERARDO KTHROUGH PAIN, (Reported) Trazodone HCl (Trazodone HCl) 50 Mg Tablet, 50 MG PO QHSP PRN for SLEEP, (Reported) Allergies Coded Allergies: Qmdzlyr-Muq-Cap Reductase Inhibitor (Verified Allergy, Unknown, 03/27/20) morphine (Verified Adverse Reaction, Intermediate, confusion and memory loss, 03/27/20) DERICK ROD MD Jun 21, 2020 10:00
[2020-06-21] MEDS: NORCO, ANEXSIA 5/325MG TABLET (HYDROcodone/ACETAMINOPHEN) PO PRN (11:09)
[2020-06-21 14:00] VITALS: BP 148/75
== END 2020-06-21 14:58 | DRG 871 ==
LOC: M ED 11:35 → EDBD 11:35 → M ED INP 14:58 → M PCU 16:30 → M MSPAV 06-19 16:50
PROVIDERS: ADMIT Internal Medicine Nephrology; ATTEND General Practice
PROC: 30233N1 Transfusion of Nonautologous Red Blood Cells into Peripheral Vein, Percutaneous Approach (ICD-10-PCS; principal; 2020-06-18)
DX: A41.9 Sepsis, unspecified organism (principal); J69.0 Pneumonitis due to inhalation of food and vomit; J96.01 Acute respiratory failure with hypoxia; N17.9 Acute kidney failure, unspecified; G93.40 Encephalopathy, unspecified; C02.9 Malignant neoplasm of tongue, unspecified; J44.9 Chronic obstructive pulmonary disease, unspecified; M19.90 Unspecified osteoarthritis, unspecified site; F41.9 Anxiety disorder, unspecified; G89.29 Other chronic pain; D64.9 Anemia, unspecified; I10 Essential (primary) hypertension; K22.70 Barrett's esophagus without dysplasia; Z86.718 Personal history of other venous thrombosis and embolism; Z86.711 Personal history of pulmonary embolism; Z79.899 Other long term (current) drug therapy; Z79.82 Long term (current) use of aspirin; Z88.5 Allergy status to narcotic agent; Z88.8 Allergy status to other drugs, medicaments and biological substances; Z87.891 Personal history of nicotine dependence; R26.89 Other abnormalities of gait and mobility; Z93.1 Gastrostomy status; Z85.118 Personal history of other malignant neoplasm of bronchus and lung; Z79.01 Long term (current) use of anticoagulants

== ENCOUNTER 2020-06-20 12:09 | Inpatient (IN) | payer MEDICARE, BC ==
[~2020-06-20] VITALS: Ht 172.7 cm; Wt 60.8 kg
[~2020-06-20 12:09] MED LIST changes: +DULO30CA9 PO; +ECOT81TA5 PO; +FENT1DIS14 TOP; +OXYC1SOL3 GT; +VENL75CA47 PO; +XARE20TA PO
[2020-06-20] MEDS ORDERED: AUGM875T28 PO (12:21)
[2020-06-20] MEDS ORDERED: BACI1CAP PO (12:21)
[2020-06-21 15:00] VITALS: BP 113/62
--- NOTE | 2020-06-21 16:04 | RADENCPD ---
Date/Time of Encounter Date of Encounter: Jun 21, 2020 Time of Encounter: 15:58 Encounter Visited with patient at bedside on rehab floor. He is much more alert and interactive today. I explained that based on his improvement that it would be a good time to start the planning process for RT. I reviewed the treatment plan with him, curative-intent treatment would consist of 70 Gy in 35 fractions with chemotherapy. The planning process, which precedes start of RT by several weeks, could begin early next week, while he is still in the hospital. Simulation would be Wednesday06/25/20 most likely. He could then focus on rehab while we plan him and begin treatment once discharged from rehab. We reviewed the side effects of treatment which can be lifelong, dysphagia and oral pain, being most serious. He agreed to proceed. Chemotherapy start can be coordinated after discharge. I explained that I would call his to update her. We will see him for planning CT early next week. RON VALVERDE MD Jun 21, 2020 16:04
[2020-06-21] MEDS ORDERED: fentaNYL 25 MCG/HR PATCH TOP SCH (16:15)
[2020-06-21] MEDS ORDERED: FENTANYL REMOVAL DOCUMENTATION MISC TD SCH (16:15)
[2020-06-21] MEDS ORDERED: ACETAMINOPHEN TAB 650MG DOSE (2X325MG) PO PRN (16:15)
[2020-06-21] MEDS: oxyCODONE 5MG TAB PEG PRN ×2 (17:00→21:08)
[2020-06-21] MEDS: LACTOBACILLUS ACIDOPHILUS CAP (BACID) PEG SCH ×2 (17:01→21:09)
[2020-06-21] MEDS: REMEDY PHYTOPLEX Z-GUARD PASTE 113GM TUBE (FROM STOREROOM PRODUCT) TOP SCH ×2 (17:01→21:25)
[2020-06-21] MEDS: ACETAMINOPHEN 325 MG/10.15 ML UDC GT PRN (17:01)
[2020-06-21] MEDS ORDERED: RIVAROXABAN 20 MG TAB (XARELTO) PEG SCH (18:00)
[2020-06-21] MEDS: IPRATROPIUM 0.5MG/ALBUTEROL 2.5MG INH SOL UD 3ML (DUONEB) NEB SCH (19:47)
[2020-06-21 20:15] VITALS: BP 139/67
[2020-06-21] MEDS: levETIRAcetam ORAL SOLUTION 500 MG/5 ML UDC GT SCH (21:07)
[2020-06-21] MEDS: PRAMIPEXOLE 0.25 MG TAB GT SCH (21:08)
[2020-06-21] MEDS: AUGMENTIN 875 MG TAB PEG SCH (21:08)
[2020-06-21] MEDS: DOCUSATE SODIUM 100MG CAPSULE PO SCH (21:08)
[2020-06-21] MEDS: SENNA 8.6 MG TAB (SENOKOT) PO SCH (21:09)
[2020-06-21] MEDS: VENLAFAXINE 37.5 MG TAB PEG SCH (21:09)
[2020-06-21] MEDS: NEBIVOLOL 5 MG TAB (BYSTOLIC) PEG SCH (21:09)
[2020-06-21] MEDS: ASPIRIN 81 MG CHEW TABLET PEG SCH (21:09)
[2020-06-21] MEDS: MAGIC MOUTHWASH SUSPENSION BTL SS PRN (22:32)
[2020-06-22] MEDS: ACETAMINOPHEN 325 MG/10.15 ML UDC GT PRN (02:16)
[2020-06-22] MEDS: oxyCODONE 5MG TAB PEG PRN ×3 (02:17→19:36)
[2020-06-22 06:10] VITALS: BP 140/71
[2020-06-22] MEDS: IPRATROPIUM 0.5MG/ALBUTEROL 2.5MG INH SOL UD 3ML (DUONEB) NEB SCH ×3 (07:12→21:10)
[2020-06-22] MEDS: DOCUSATE SODIUM 100MG CAPSULE PO SCH ×2 (07:22→19:36)
[2020-06-22] MEDS: RIVAROXABAN 20 MG TAB (XARELTO) PEG SCH (07:36)
[2020-06-22] MEDS: AUGMENTIN 875 MG TAB PEG SCH ×2 (07:36→19:36)
[2020-06-22] MEDS: CYANOCOBALAMIN 500 MCG TAB PEG SCH (07:37)
[2020-06-22] MEDS: VENLAFAXINE 37.5 MG TAB PEG SCH ×2 (07:37→19:35)
[2020-06-22] MEDS: levETIRAcetam ORAL SOLUTION 500 MG/5 ML UDC GT SCH ×2 (07:37→19:34)
[2020-06-22] MEDS: LACTOBACILLUS ACIDOPHILUS CAP (BACID) PEG SCH ×3 (07:37→19:35)
[2020-06-22] MEDS: LANSOPRAZOLE SUSPENSION 30 MG/10 ML ORAL SYRINGE (FIRST-LANSOPRAZOLE) GT SCH (07:37)
[2020-06-22] MEDS: FOLIC ACID 1 MG TAB PEG SCH (07:37)
[2020-06-22] MEDS: REMEDY PHYTOPLEX Z-GUARD PASTE 113GM TUBE (FROM STOREROOM PRODUCT) TOP SCH ×3 (07:38→19:37)
[2020-06-22 07:39] LABS: BASO % 0.3 % (0.0-1.0); EOS # 0.2 10^3/uL (0.0-0.5); EOS % 3.2 % (0.0-3.0); HEMATOCRIT 27.9 % (42.0-52.0); HEMOGLOBIN 8.8 g/dl (13.5-17.5); LYMPH # 1.2 10^3/uL (1.5-5.0); LYMPH % 16.8 % (24.0-44.0); MEAN CORPUSCULAR HEMOGLOBIN 33.3 pg (27.0-33.0); MEAN CORPUSCULAR HGB CONC 31.5 g/dl (32.0-36.5); MEAN CORPUSCULAR VOLUME 105.7 fl (80.0-96.0); MONO # 0.8 10^3/uL (0.0-0.8); NEUTROPHILS # 4.7 10^3/uL (1.5-8.5); PLATELET COUNT, AUTOMATED 252 10^3/uL (150-450); RED BLOOD COUNT 2.64 10^6/uL (4.30-6.10); WHITE BLOOD COUNT 6.8 10^3/uL (4.0-10.0)
[2020-06-22 08:08] LABS: ALBUMIN 2.3 GM/DL (3.2-5.2); ALT/SGPT 103 U/L (12-78); BILIRUBIN,TOTAL 0.4 MG/DL (0.2-1.0); BLOOD UREA NITROGEN 25 MG/DL (7-18); CALCIUM LEVEL 8.9 MG/DL (8.8-10.2); CARBON DIOXIDE LEVEL 30 MEQ/L (21-32); CHLORIDE LEVEL 113 MEQ/L (98-107); CREATININE FOR GFR 0.68 MG/DL (0.70-1.30); GLOMERULAR FILTRATION RATE > 60.0 (>42); GLUCOSE, FASTING 105 MG/DL (70-100); POTASSIUM SERUM 3.9 MEQ/L (3.5-5.1); SODIUM LEVEL 146 MEQ/L (136-145); TOTAL PROTEIN 6.1 GM/DL (6.4-8.2)
--- NOTE | 2020-06-22 12:56 | HPEPDOC ---
Washroom Attendant Note DATE OF ADMISSION: 06-21-20 DATE OF SERVICE: 06-21-20 TIME OF ADMISSION: Please refer to physician's admission order. SOURCE OF ADMISSION INFORMATION: [[facility] record and patient CHIEF COMPLAINT: aspiration PNA in setting of end stage tongue cancer HISTORY OF PRESENT ILLNESS: 69M pmh lung cancer s/p left upper lobectomy with recurrence, DVT/PE on Xarelto, COPD, HTN, macrocytic anemia with b12 deficiency, chronic pain, stage 4 squamous tongue cancer with PEG tube placed 05-14-20, ETOH abuse, chronic pain who presented to [facility] ED on 06-17-20 with fever, lethargy and weakness. He was found to have sepsis due to left sided pneumonia. He was admitted for aspiration pneumonia, FELIX, and anemia requiring 3 units of prbc. He was maintained on IV Zosyn with clinical improvement and transitioned to po antibiotics. He was evaluated by therapy and found to have impairments in ADLs and mobility with patient's wish to be able to walk further and more safely at home with his poor medical prognosis before getting radiation for his stage 4 tongue cancer when discharged home. He requested to drink water on IRF admission and agreed to the free water darryn protocol, acknowledging the risks for further aspiration. REVIEW OF SYSTEMS: The following is a completed review of systems and has been reviewed. Review of systems otherwise unremarkable. PAIN: Patient self reports no pain at rest EYES: No recent vision changes EARS, NOSE, & THROAT: +dysphagia CARDIOVASCULAR: Denies chest pain or palpitations PULMONARY: Denies shortness of breath at rest, + with exertion GASTROINTESTINAL: Denies constipation/diarrhea GENITOURINARY:denies dysuria MUSCULOSKELETAL: generalized weakness NEUROLOGICAL:denies paresthesias HEMATOLOGICAL:+anemia SKIN: +Peg, denies rash PSYCHIATRIC: Unremarkable All other review of systems found to be negative. PAST MEDICAL HISTORY: as per HPI PAST SURGICAL HISTORY: as per HPI ALLERGIES: Please see below. MEDICATIONS: Please see below. FAMILY HISTORY: skin cancer SOCIAL HISTORY: ex-smoker, hx of etoh abuse DIET:NPO PHYSICAL EXAMINATION: VITAL SIGNS: Please see below. GENERAL: Pleasant and cooperative. No acute distress. thin HEENT: PERRL. Extraocular movements intact. Clear conjunctiva CARDIOVASCULAR: Regular rate and rhythm. No murmurs, rubs, or gallops LUNGS: Clear to auscultation bilaterally. No wheezes. No rhonchi ABDOMEN: Soft, nontender, nondistended. Positive bowel sounds. Normal active bowel sounds. +PEG NEUROLOGICAL: Alert and oriented times three. Cranial nerves II through XII grossly intact. Sensation grossly intact EXTREMITIES: 5\5 strength bilateral upper extremities. 5-\5 strength right lower extremity 5-/5 strength in left lower extremity. range of motion in left lower extremity. SKIN: no sacral rash/erythema, PEG site c/d/i LABORATORY DATA: Please see below. IMAGING:[Imaging documentation personally reviewed by record]. FUNCTIONAL STATUS: Premorbid: Mod- Independent with all activities of daily life as well as mobility from wheelchair level able to walk household distances On Admission: contact guard for bed mobility, ambulation, dressing GOALS: Mod-I with RW household distances, dressing, toileting, stairs, ambulating ASSESSMENT:69-year-old M with past medical history of tongue cancer stage 4 who presents status post aspiration PNA with PEG PLAN: 1. Rehab- PT/OT advance mobility ADLs, strengthen/stretch/maintain ROM all 4limbs, energy conservation 2. CArdiac- hx of HTN, c/u beta-shivani, will hold ARB as recent hypotension and restart if permitted -medicine consulted to assist in overall management 3. Resp- c/u augmentin for aspiration PNA in setting of PEG due to dysphgagia from tongue cancer, praveen/OLAYINKAonebs, 02 prn -Free water Darryn protocol in place, patient understands risk of aspiration PNA which should be mitigated with thorough oral care, but still a possibility, and he still prefers to have some water for pleasure -Hx of pE/DVT c/u xarelto 4. GI- c/u PPI, PEG with tub feeds, HOB >30 5. Pain- c/u tylneol and oxycodone, will avoid fentanyl to avoid lethargy 6. Neuro- patient on Keppra for possible seizures hx 7. Psych- c/u xanax for anxiety and effexor for depression 8. Heme/onc- anemia of chronic disease and B12 deficiency, s/p 3 units prbcs, FOBT negative, c/u b12 -tongue cancer stage 4 ,will receive radiation upon discharge 9. Dispo- tbd POST ADMISSION PHYSICIAN EVALUATION: Medical and functional status: Description of medical status, medical assessment: As above. Rehabilitation diagnosis and current and prior cold morbid medical conditions as above. Risk of complications and plans to mitigate them as above. Description of functional status current status is as above. Prior status as above. Status compared to preadmission: There are no clinically significant differences between the patient's current status and the information described on the preadmission screening document. Treatment plan anticipated: Treatment plan is as described above. Required disciplines including physical therapy, occupational therapy, others as noted above Intensity of services: 3 hours a day, 6 days a week. Special considerations: There are no specific special or safety considerations that would likely preclude immediate implementation of an intensive rehabilitation program or subsequently influence the plan of care. ATTESTATION: Considering all the information above, it is my best judgment that this patient requires intensive rehabilitation therapy as described above and an inpatient hospital environment due to the complexity of nursing, medical, and rehabilitation needs required by the patient. Furthermore, this patient can reasonably be expected to participate in an benefit from an inpatient rehabilit ation stay with an interdisciplinary team approach to the delivery of rehabilitation care under the direction and supervision of rehabilitation physician PROGNOSIS: fair-poor ESTIMATED LENGTH OF STAY:7-10 days. PROJECTED DISCHARGE DESTINATION: Home with family support and any durable medical equipment required to increase functional safety and mobility TIME SPENT COUNSELING AND COORDINATING INITIAL CARE: Greater than 70 minutes. Vital Signs Vital Sign - Last 24 Hours 06/21/20 06/21/20 06/21/20 06/21/20 15:00 17:00 17:30 20:15 Temp 98.8 98.4 Pulse 77 72 Resp 24 20 18 18 B/P (MAP) 113/62 (79) 139/67 (91) Pulse Ox 94 97 06/21/20 06/21/20 06/21/20 06/22/20 21:08 21:09 21:38 02:17 Pulse 72 Resp 26 20 26 B/P (MAP) 139/67 06/22/20 06/22/20 02:47 06:10 Temp 98.6 Pulse 72 Resp 22 18 B/P (MAP) 140/71 (94) Pulse Ox 93 Laboratory Data CBC/BMP Laboratory Tests 06/22/20 07:00 Labs 24H Laboratory Tests 2 06/22/20 07:00: Immature Granulocyte % (Auto) 0.7, Neutrophils (%) (Auto) 68.0H, Lymphocytes (%) (Auto) 16.8L, Monocytes (%) (Auto) 11.0H, Eosinophils (%) (Auto) 3.2H, Basophils (%) (Auto) 0.3, Neutrophils # (Auto) 4.7, Lymphocytes # (Auto) 1.2L, Monocytes # (Auto) 0.8, Eosinophils # (Auto) 0.2, Basophils # (Auto) 0.0, Nucleated Red Blood Cells % (auto) 0.0, Anion Gap 3L, Glomerular Filtration Rate > 60.0, Ca lcium Level 8.9, Total Bilirubin 0.4, Aspartate Amino Transf (AST/SGOT) 59H, Alanine Aminotransferase (ALT/SGPT) 103H, Alkaline Phosphatase 89, Total Protein 6.1L, Albumin 2.3L, Albumin/Globulin Ratio 0.6 Home Medications Scheduled Amoxicillin/Potassium Clav (Augmentin 875-125 Tablet) 1 Each Tablet, 1 TAB PO BID Aspirin (Ecotrin) 81 Mg Tablet.dr, 81 MG PO QHS, (Reported) Bacillus Coagulans (Bacid with Lactospore) 1 Each Capsule, 1 CAP PO TID Cyanocobalamin (Vitamin B-12) (Vitamin B-12) 500 Mcg Tablet, Unknown Dose IM QWEEK, (Reported) Fentanyl (Fentanyl) 25 Mcg Patch.td72, 1 PATCH TOP Q3DP, (Reported) Folic Acid (Folic Acid) 1 Mg Tablet, 1 MG PO DAILY, (Reported) Irbesartan (Irbesartan) 150 Mg Tablet, 150 MG PO DAILY, (Reported) Levetiracetam (Keppra) 500 Mg Tablet, 500 MG PO BID, (Reported) Nebivolol HCl (Bystolic) 5 Mg Tablet, 5 MG PO QHS, (Reported) Omeprazole (Omeprazole) 20 Mg Capsule.dr, 20 MG PO DAILY, (Reported) Pramipexole Di-HCl (Pramipexole Dihydrochloride) 1 Mg Tablet, 0.5 MG PO QHS, (Reported) Rivaroxaban (Xarelto) 20 Mg Tablet, 20 MG PO DAILY, (Reported) Venlafaxine HCl (Venlafaxine HCl ER) 75 Mg Cap.er.24h, 225 MG PO QHS, (Reported) Scheduled PRN Alprazolam (Alprazolam) 0.5 Mg Tablet, 0.5 MG PO Q8H PRN for ANXIETY/AGITATION, (Reported) Hydrocodone/Acetaminophen (Hydrocodone-Acetamin 5-325 mg) 1 Each Tablet, 2 TAB PO Q6H PRN for PAIN, (Reported) Oxycodone HCl (Oxycodone HCl) 5 Mg/5 Ml Solution, 10 ML GT Q6H PRN for BREAKTHROUGH PAIN, (Reported) Trazodone HCl (Trazodone HCl) 50 Mg Tablet, 50 MG PO QHSP PRN for SLEEP, (Reported) Allergies Coded Allergies: Xelkrno-Bqd-Ybb Reductase Inhibitor (Verified Allergy, Unknown, 03/27/20) morphine (Verified Adverse Reaction, Intermediate, confusion and memory loss, 03/27/20) A-FIB/CHADSVASC A-FIB History Current/History of A-Fib/PAF?: No Current PO Anticoag Therapy: Yes MIGUEL FELIPE MD Jun 22, 2020 12:56
[2020-06-22 14:00] VITALS: BP 130/74
[2020-06-22] MEDS: guaiFENesin SYRUP 200 MG/10 ML UDC PO SCH ×2 (15:31→19:34)
[2020-06-22] MEDS: PRAMIPEXOLE 0.25 MG TAB GT SCH (19:35)
[2020-06-22] MEDS: ASPIRIN 81 MG CHEW TABLET PEG SCH (19:36)
[2020-06-22] MEDS: NEBIVOLOL 5 MG TAB (BYSTOLIC) PEG SCH (19:36)
[2020-06-22] MEDS: SENNA 8.6 MG TAB (SENOKOT) PO SCH (19:36)
[2020-06-22 20:15] VITALS: BP 131/72
[2020-06-23] MEDS: ACETAMINOPHEN 325 MG/10.15 ML UDC GT PRN (01:57)
[2020-06-23] MEDS: oxyCODONE 5MG TAB PEG PRN ×5 (01:57→20:32)
[2020-06-23 06:00] VITALS: BP 139/67
[2020-06-23] MEDS: IPRATROPIUM 0.5MG/ALBUTEROL 2.5MG INH SOL UD 3ML (DUONEB) NEB SCH ×3 (07:15→19:35)
[2020-06-23] MEDS: guaiFENesin SYRUP 200 MG/10 ML UDC PO SCH ×3 (08:07→20:31)
[2020-06-23] MEDS: CYANOCOBALAMIN 500 MCG TAB PEG SCH (08:07)
[2020-06-23] MEDS: DOCUSATE SODIUM 100MG CAPSULE PO SCH ×2 (08:07→20:31)
[2020-06-23] MEDS: LANSOPRAZOLE SUSPENSION 30 MG/10 ML ORAL SYRINGE (FIRST-LANSOPRAZOLE) GT SCH (08:07)
[2020-06-23] MEDS: levETIRAcetam ORAL SOLUTION 500 MG/5 ML UDC GT SCH ×2 (08:07→20:31)
[2020-06-23] MEDS: AUGMENTIN 875 MG TAB PEG SCH ×2 (08:08→20:32)
[2020-06-23] MEDS: RIVAROXABAN 20 MG TAB (XARELTO) PEG SCH (08:08)
[2020-06-23] MEDS: VENLAFAXINE 37.5 MG TAB PEG SCH ×2 (08:08→20:33)
[2020-06-23] MEDS: FOLIC ACID 1 MG TAB PEG SCH (08:08)
[2020-06-23] MEDS: REMEDY PHYTOPLEX Z-GUARD PASTE 113GM TUBE (FROM STOREROOM PRODUCT) TOP SCH ×3 (08:09→20:33)
[2020-06-23] MEDS: LACTOBACILLUS ACIDOPHILUS CAP (BACID) PEG SCH ×3 (08:09→20:32)
[2020-06-23] MEDS: ALPRAZolam 0.5 MG TAB PEG PRN ×2 (11:58→20:33)
[2020-06-23] MEDS: MAGIC MOUTHWASH SUSPENSION BTL SS PRN ×3 (12:04→20:33)
[2020-06-23 14:00] VITALS: BP 132/76
[2020-06-23 20:00] VITALS: BP 124/70
[2020-06-23] MEDS: SENNA 8.6 MG TAB (SENOKOT) PO SCH (20:32)
[2020-06-23] MEDS: ASPIRIN 81 MG CHEW TABLET PEG SCH (20:32)
[2020-06-23] MEDS: PRAMIPEXOLE 0.25 MG TAB GT SCH (20:32)
[2020-06-23] MEDS: NEBIVOLOL 5 MG TAB (BYSTOLIC) PEG SCH (20:33)
[2020-06-24] MEDS: oxyCODONE 5MG TAB PEG PRN ×5 (00:19→21:24)
[2020-06-24 05:56] VITALS: BP 136/72
[2020-06-24 08:09] LABS: BASO % 0.3 % (0.0-1.0); EOS # 0.3 10^3/uL (0.0-0.5); EOS % 3.6 % (0.0-3.0); HEMATOCRIT 29.9 % (42.0-52.0); HEMOGLOBIN 9.3 g/dl (13.5-17.5); LYMPH # 1.1 10^3/uL (1.5-5.0); LYMPH % 14.2 % (24.0-44.0); MEAN CORPUSCULAR HEMOGLOBIN 32.6 pg (27.0-33.0); MEAN CORPUSCULAR HGB CONC 31.1 g/dl (32.0-36.5); MEAN CORPUSCULAR VOLUME 104.9 fl (80.0-96.0); MONO # 0.7 10^3/uL (0.0-0.8); MONO % 9.3 % (0.0-5.0); NEUTROPHILS # 5.7 10^3/uL (1.5-8.5); NEUTROPHILS % 71.7 % (36.0-66.0); PLATELET COUNT, AUTOMATED 184 10^3/uL (150-450); RED BLOOD COUNT 2.85 10^6/uL (4.30-6.10)
[2020-06-24] MEDS: LACTOBACILLUS ACIDOPHILUS CAP (BACID) PEG SCH ×3 (08:20→21:13)
[2020-06-24] MEDS: levETIRAcetam ORAL SOLUTION 500 MG/5 ML UDC GT SCH ×2 (08:20→21:13)
[2020-06-24] MEDS: FOLIC ACID 1 MG TAB PEG SCH (08:20)
[2020-06-24] MEDS: RIVAROXABAN 20 MG TAB (XARELTO) PEG SCH (08:20)
[2020-06-24] MEDS: DOCUSATE SODIUM 100MG CAPSULE PO SCH (08:20)
[2020-06-24] MEDS: LANSOPRAZOLE SUSPENSION 30 MG/10 ML ORAL SYRINGE (FIRST-LANSOPRAZOLE) GT SCH (08:20)
[2020-06-24] MEDS: REMEDY PHYTOPLEX Z-GUARD PASTE 113GM TUBE (FROM STOREROOM PRODUCT) TOP SCH ×3 (08:20→21:00)
[2020-06-24] MEDS: AUGMENTIN 875 MG TAB PEG SCH ×2 (08:20→21:13)
[2020-06-24] MEDS: VENLAFAXINE 37.5 MG TAB PEG SCH ×2 (08:20→21:13)
[2020-06-24] MEDS: CYANOCOBALAMIN 500 MCG TAB PEG SCH (08:20)
[2020-06-24] MEDS: guaiFENesin SYRUP 200 MG/10 ML UDC PO SCH ×3 (08:20→21:13)
[2020-06-24 08:31] LABS: BLOOD UREA NITROGEN 18 MG/DL (7-18); CALCIUM LEVEL 8.5 MG/DL (8.8-10.2); CARBON DIOXIDE LEVEL 27 MEQ/L (21-32); CHLORIDE LEVEL 103 MEQ/L (98-107); CREATININE FOR GFR 0.62 MG/DL (0.70-1.30); GLOMERULAR FILTRATION RATE > 60.0 (>42); GLUCOSE, FASTING 100 MG/DL (70-100); POTASSIUM SERUM 4.6 MEQ/L (3.5-5.1); SODIUM LEVEL 137 MEQ/L (136-145)
[2020-06-24] MEDS ORDERED: DOCUSATE SOD LIQ 100MG/10ML UDC GT PRN (10:00)
[2020-06-24] MEDS: IPRATROPIUM 0.5MG/ALBUTEROL 2.5MG INH SOL UD 3ML (DUONEB) NEB SCH ×3 (10:42→18:46)
--- NOTE | 2020-06-24 12:51 | IPNPDOC ---
PM&R Progress Note DATE OF SERVICE: Jun 24, 2020 [facility] Pric[facility] Consultant Progress Note Subjective: PAtient reporting he is sleeping well and feels more energized. He would like to drink more water and to get stronger before going home hopefully this week. REVIEW OF SYSTEMS: The following is a completed review of systems and has been reviewed. Review of systems otherwise unremarkable. PAIN: Patient self reports no pain at rest EYES: No recent vision changes EARS, NOSE, & THROAT: +dysphagia CARDIOVASCULAR: Denies chest pain or palpitations PULMONARY: Denies shortness of breath at rest, + with exertion GASTROINTESTINAL: Denies constipation/diarrhea GENITOURINARY:denies dysuria MUSCULOSKELETAL: generalized weakness NEUROLOGICAL:denies paresthesias HEMATOLOGICAL:+anemia SKIN: +Peg, denies rash PSYCHIATRIC: Unremarkable All other review of systems found to be negative. PHYSICAL EXAMINATION: VITAL SIGNS: Please see below. GENERAL: Pleasant and cooperative. No acute distress. thin HEENT: PERRL. Extraocular movements intact. Clear conjunctiva CARDIOVASCULAR: Regular rate and rhythm. No murmurs, rubs, or gallops LUNGS: Clear to auscultation bilaterally. No wheezes. No rhonchi ABDOMEN: Soft, nontender, nondistended. Positive bowel sounds. Normal active bowel sounds. +PEG NEUROLOGICAL: Alert and oriented times three. Cranial nerves II through XII grossly intact. Sensation grossly intact EXTREMITIES: 5\5 strength bilateral upper extremities. 5-\5 strength right lower extremity 5-/5 strength in left lower extremity. range of motion in left lower extremity. SKIN: no sacral rash/erythema, PEG site c/d/i ASSESSMENT:69-year-old M with past medical history of tongue cancer stage 4 who presents status post aspiration PNA with PEG PLAN: 1. Rehab- PT/OT advance mobility ADLs, strengthen/stretch/maintain ROM all 4limbs, energy conservation 2. CArdiac- hx of HTN, c/u beta-shivani, will hold ARB as recent hypotension and restart if permitted -medicine consulted to assist in overall management 3. Resp- c/u augmentin for aspiration PNA in setting of PEG due to dysphgagia from tongue cancer, shanfenjosue/Sulma, 02 prn -Free water Darryn protocol in place, patient understands risk of aspiration PNA which should be mitigated with thorough oral care, but still a possibility, and he still prefers to have some water for pleasure -Hx of pE/DVT c/u xarelto 4. GI- c/u PPI, PEG with tub feeds, HOB >30 5. Pain- c/u tylneol and oxycodone, will avoid fentanyl to avoid lethargy 6. Neuro- patient on Keppra for possible seizures hx 7. Psych- c/u xanax for anxiety and effexor for depression 8. Heme/onc- anemia of chronic disease and B12 deficiency, s/p 3 units prbcs, FOBT negative, c/u b12 -tongue cancer stage 4 ,will receive radiation upon discharge 9. Dispo- tbd Allergies Coded Allergies: Tytigvu-Oec-Clv Reductase Inhibitor (Verified Allergy, Unknown, 03/27/20) morphine (Verified Adverse Reaction, Intermediate, confusion and memory loss, 03/27/20) Vital Signs Vital Signs Date Time Temp Pulse Resp B/P (MAP) Pulse Ox O2 Delivery O2 Flow Rate FiO2 06/24/20 06:24 18 06/24/20 05:56 98.9 78 136/72 (93) 93 Room Air Laboratory Data CBC/BMP Laboratory Tests 06/24/20 06:41 Labs 24H Laboratory Tests 2 06/24/20 06:41: Immature Granulocyte % (Auto) 0.9, Neutrophils (%) (Auto) 71.7H, Lymphocytes (%) (Auto) 14.2L, Monocytes (%) (Auto) 9.3H, Eosinophils (%) (Auto) 3.6H, Basophils (%) (Auto) 0.3, Neutrophils # (Auto) 5.7, Lymphocytes # (Auto) 1.1L, Monocytes # (Auto) 0.7, Eosinophils # (Auto) 0.3, Basophils # (Auto) 0.0, Nucleated Red Blood Cells % (auto) 0.0, Anion Gap 7L, Glomerular Filtration Rate > 60.0, Calcium Level 8.5L 06/24/20 11:13: Bedside Glucose (Misc Panel) 102 Current Medications Current Medications Current Medications Medications (Trade) Dose Ordered Sig/Robin Route PRN Reason Start Time Stop Time Status Last Admin Dose Admin Acetaminophen (Tylenol Suspension) 650 mg Q6HP PRN GT PAIN OR FEVER 06/21/20 16:00 06/23/20 01:57 Acetaminophen (Tylenol Tab) 650 mg Q4HP PRN PO MILD PAIN (PS 1-4) 06/21/20 16:15 06/21/20 16:26 DC Albuterol/ Ipratropium (Duoneb (Ipr 0.5mg/Alb 2.5mg)) 3 ml TID NEB 06/21/20 21:00 06/23/20 19:35 Alprazolam (Xanax) 0.5 mg Q8HP PRN PEG ANXIETY 06/21/20 16:00 06/23/20 20:33 Amoxicillin/ Clavulanate Potassium (Augmentin) 875 mg BID PEG 06/21/20 21:00 06/24/20 08:20 Aspirin (Aspirin Chewable) 81 mg QHS PEG 06/21/20 21:00 06/23/20 20:32 Cyanocobalamin (Vitamin B12) 500 mcg DAILY PEG 06/22/20 09:00 06/24/20 08:20 Docusate Sodium (Colace Liquid) 100 mg BID PRN GT constipation 06/24/20 10:00 Docusate Sodium (Colace) 100 mg BID PO 06/21/20 21:00 06/24/20 09:59 DC 06/24/20 08:20 Fentanyl (Duragesic) 25 mcg Q72H TOP 06/21/20 16:15 06/21/20 16:25 DC Folic Acid (Folic Acid) 1 mg DAILY PEG 06/22/20 09:00 06/24/20 08:20 Guaifenesin (Robitussin) 5 ml TID PO 06/22/20 16:00 06/24/20 08:20 Home Med (Med Rec Complete!) ASDIRECTED XX 06/21/20 15:30 06/21/20 15:26 DC Lactobacillus Acidophilus (Bacid) 1 ea TID PEG 06/21/20 16:00 06/24/20 08:20 Lansoprazole (First-Lansoprazole Oral Suspension) 30 mg DAILY GT 06/22/20 09:00 06/24/20 08:20 Levetiracetam (Keppra Oral Solution) 500 mg BID GT 06/21/20 21:00 06/24/20 08:20 Lidocaine/ Diphenhydr/Alum/ Mg/Simeth (Magic Mouthwash) 5ml Q4HP PRN SS DISCOMFORT 06/21/20 16:00 12/13/20 20:33 Nebivolol (Bystolic) 5 mg QHS PEG 06/21/20 21:00 06/23/20 20:33 Non-Formulary Medication ( See Comment Field Below ) 1 ASDIRECTED TD 06/21/20 16:15 06/21/20 16:25 DC Oxycodone HCl (Roxicodone, Oxyir) 5 mg Q4HP PRN PEG PAIN 06/21/20 16:00 06/24/20 05:54 Pramipexole Dihydrochloride (Mirapex) 0.5 mg QHS GT 06/21/20 21:00 06/23/20 20:32 Rivaroxaban (Xarelto) 20 mg DAILY PEG 06/22/20 09:00 06/24/20 08:20 Rivaroxaban (Xarelto) 20 mg DAILY@18 PEG 06/21/20 18:00 06/21/20 16:25 DC Senna (Senokot) 1 tab QHS PO 06/21/20 21:00 06/23/20 20:32 Venlafaxine HCl (Effexor) 112.5 mg BID PEG 06/21/20 21:00 06/24/20 08:20 MIGUEL FELIPE MD Jun 24, 2020 12:51
[2020-06-24 14:00] VITALS: BP 158/75
[2020-06-24 20:00] VITALS: BP 107/63
[2020-06-24] MEDS: NEBIVOLOL 5 MG TAB (BYSTOLIC) PEG SCH (21:00)
[2020-06-24] MEDS: ALPRAZolam 0.5 MG TAB PEG PRN (21:12)
[2020-06-24] MEDS: ASPIRIN 81 MG CHEW TABLET PEG SCH (21:13)
[2020-06-24] MEDS: SENNA 8.6 MG TAB (SENOKOT) PO SCH (21:13)
[2020-06-24] MEDS: ACETAMINOPHEN 325 MG/10.15 ML UDC GT PRN (21:13)
[2020-06-24] MEDS: PRAMIPEXOLE 0.25 MG TAB GT SCH (21:13)
[2020-06-24] MEDS: MAGIC MOUTHWASH SUSPENSION BTL SS PRN (21:33)
[2020-06-25] MEDS: oxyCODONE 5MG TAB PEG PRN ×5 (01:26→22:10)
[2020-06-25 05:58] VITALS: BP 144/78
[2020-06-25] MEDS: REMEDY PHYTOPLEX Z-GUARD PASTE 113GM TUBE (FROM STOREROOM PRODUCT) TOP SCH ×3 (09:00→20:55)
[2020-06-25] MEDS: FOLIC ACID 1 MG TAB PEG SCH (09:44)
[2020-06-25] MEDS: VENLAFAXINE 37.5 MG TAB PEG SCH ×2 (09:44→20:53)
[2020-06-25] MEDS: AUGMENTIN 875 MG TAB PEG SCH ×2 (09:44→20:53)
[2020-06-25] MEDS: LANSOPRAZOLE SUSPENSION 30 MG/10 ML ORAL SYRINGE (FIRST-LANSOPRAZOLE) GT SCH (09:44)
[2020-06-25] MEDS: guaiFENesin SYRUP 200 MG/10 ML UDC PO SCH ×3 (09:44→20:52)
[2020-06-25] MEDS: levETIRAcetam ORAL SOLUTION 500 MG/5 ML UDC GT SCH ×2 (09:44→20:52)
[2020-06-25] MEDS: RIVAROXABAN 20 MG TAB (XARELTO) PEG SCH (09:44)
[2020-06-25] MEDS: ACETAMINOPHEN 325 MG/10.15 ML UDC GT PRN ×3 (09:44→22:10)
[2020-06-25] MEDS: LACTOBACILLUS ACIDOPHILUS CAP (BACID) PEG SCH ×3 (09:45→20:54)
[2020-06-25] MEDS: ALPRAZolam 0.5 MG TAB PEG PRN ×2 (09:45→20:54)
[2020-06-25] MEDS: CYANOCOBALAMIN 500 MCG TAB PEG SCH (09:45)
[2020-06-25] MEDS: MAGIC MOUTHWASH SUSPENSION BTL SS PRN ×2 (09:45→20:54)
[2020-06-25] MEDS: IPRATROPIUM 0.5MG/ALBUTEROL 2.5MG INH SOL UD 3ML (DUONEB) NEB SCH ×3 (12:15→18:07)
[2020-06-25] MEDS ORDERED: PILL CUTTER 1 EACH XX PRN (12:30)
--- NOTE | 2020-06-25 12:52 | IPNPDOC ---
PM&R Progress Note DATE OF SERVICE: Jun 25, 2020 [employer] Progress Note Subjective: PAtient reporting he is still in quite a bit of pain and was happy to have his oxycodone dose increased. REVIEW OF SYSTEMS: The following is a completed review of systems and has been reviewed. Review of systems otherwise unremarkable. PAIN: Patient self reports no pain at rest EYES: No recent vision changes EARS, NOSE, & THROAT: +dysphagia CARDIOVASCULAR: Denies chest pain or palpitations PULMONARY: Denies shortness of breath at rest, + with exertion GASTROINTESTINAL: Denies constipation/diarrhea GENITOURINARY:denies dysuria MUSCULOSKELETAL: generalized weakness NEUROLOGICAL:denies paresthesias HEMATOLOGICAL:+anemia SKIN: +Peg, denies rash PSYCHIATRIC: Unremarkable All other review of systems found to be negative. PHYSICAL EXAMINATION: VITAL SIGNS: Please see below. GENERAL: Pleasant and cooperative. No acute distress. thin HEENT: PERRL. Extraocular movements intact. Clear conjunctiva CARDIOVASCULAR: Regular rate and rhythm. No murmurs, rubs, or gallops LUNGS: Clear to auscultation bilaterally. No wheezes. No rhonchi ABDOMEN: Soft, nontender, nondistended. Positive bowel sounds. Normal active bowel sounds. +PEG NEUROLOGICAL: Alert and oriented times three. Cranial nerves II through XII grossly intact. Sensation grossly intact EXTREMITIES: 5\5 strength bilateral upper extremities. 5-\5 strength right lower extremity 5-/5 strength in left lower extremity. range of motion in left lower extremity. SKIN: no sacral rash/erythema, PEG site c/d/i ASSESSMENT:69-year-old M with past medical history of tongue cancer stage 4 who presents status post aspiration PNA with PEG PLAN: 1. Rehab- PT/OT advance mobility ADLs, strengthen/stretch/maintain ROM all 4limbs, energy conservation 2. CArdiac- hx of HTN, c/u beta-shivani, will hold ARB as recent hypotension and restart if permitted -medicine consulted to assist in overall management 3. Resp- c/u augmentin for aspiration PNA in setting of PEG due to dysphgagia from tongue cancer, praveen/Sulma, 02 prn -Free water Darryn protocol in place, patient understands risk of aspiration PNA which should be mitigated with thorough oral care, but still a possibility, and he still prefers to have some water for pleasure -Hx of pE/DVT c/u xarelto 4. GI- c/u PPI, PEG with tub feeds, HOB >30 5. Pain- c/u tylneol and oxycodone, will avoid fentanyl to avoid lethargy 6. Neuro- patient on Keppra for possible seizures hx 7. Psych- c/u xanax for anxiety and effexor for depression 8. Heme/onc- anemia of chronic disease and B12 deficiency, s/p 3 units prbcs, FOBT negative, c/u b12 -tongue cancer stage 4 ,will receive radiation upon discharge, went for CT mapping today 9. Dispo- tbd Allergies Coded Allergies: Ltuuxfa-Yug-Eek Reductase Inhibitor (Verified Allergy, Unknown, 03/27/20) morphine (Verified Adverse Reaction, Intermediate, confusion and memory loss, 03/27/20) Vital Signs Vital Signs Date Time Temp Pulse Resp B/P (MAP) Pulse Ox O2 Delivery O2 Flow Rate FiO2 06/25/20 12:24 18 06/25/20 06:30 Room Air 06/25/20 05:58 98.1 73 144/78 (100) 97 Laboratory Data Labs 24H Laboratory Tests 2 06/24/20 16:48: Bedside Glucose (Misc Panel) 108 Current Medications Current Medications Current Medications Medications (Trade) Dose Ordered Sig/Robin Route PRN Reason Start Time Stop Time Status Last Admin Dose Admin Acetaminophen (Tylenol Suspension) 650 mg Q6HP PRN GT PAIN OR FEVER 06/21/20 16:00 06/25/20 09:44 Acetaminophen (Tylenol Tab) 650 mg Q4HP PRN PO MILD PAIN (PS 1-4) 06/21/20 16:15 06/21/20 16:26 DC Albuterol/ Ipratropium (Duoneb (Ipr 0.5mg/Alb 2.5mg)) 3 ml TID NEB 06/21/20 21:00 06/25/20 12:15 Alprazolam (Xanax) 0.5 mg Q8HP PRN PEG ANXIETY 06/21/20 16:00 06/25/20 09:45 Amoxicillin/ Clavulanate Potassium (Augmentin) 875 mg BID PEG 06/21/20 21:00 06/25/20 09:44 Aspirin (Aspirin Chewable) 81 mg QHS PEG 06/21/20 21:00 06/24/20 21:13 Cyanocobalamin (Vitamin B12) 500 mcg DAILY PEG 06/22/20 09:00 06/25/20 09:45 Docusate Sodium (Colace Liquid) 100 mg BID PRN GT constipation 06/24/20 10:00 Docusate Sodium (Colace) 100 mg BID PO 06/21/20 21:00 06/24/20 09:59 DC 06/24/20 08:20 Fentanyl (Duragesic) 25 mcg Q72H TOP 06/21/20 16:15 06/21/20 16:25 DC Folic Acid (Folic Acid) 1 mg DAILY PEG 06/22/20 09:00 06/25/20 09:44 Guaifenesin (Robitussin) 5 ml TID PO 06/22/20 16:00 06/25/20 09:44 Home Med (Med Rec Complete!) ASDIRECTED XX 06/21/20 15:30 06/21/20 15:26 DC Lactobacillus Acidophilus (Bacid) 1 ea TID PEG 06/21/20 16:00 06/25/20 09:45 Lansoprazole (First-Lansoprazole Oral Suspension) 30 mg DAILY GT 06/22/20 09:00 06/25/20 09:44 Levetiracetam (Keppra Oral Solution) 500 mg BID GT 06/21/20 21:00 06/25/20 09:44 Lidocaine/ Diphenhydr/Alum/ Mg/Simeth (Magic Mouthwash) 5ml Q4HP PRN SS DISCOMFORT 06/21/20 16:00 06/25/20 09:45 Nebivolol (Bystolic) 5 mg QHS PEG 06/21/20 21:00 06/23/20 20:33 Non-Formulary Medication ( See Comment Field Below ) 1 ASDIRECTED TD 06/21/20 16:15 06/21/20 16:25 DC Oxycodone HCl (Roxicodone, Oxyir) 5 mg Q4HP PRN PEG PAIN 06/21/20 16:00 06/25/20 10:32 DC 06/25/20 05:53 Oxycodone HCl (Roxicodone, Oxyir) 7.5 mg Q4HP PRN PEG PAIN 06/25/20 10:45 06/25/20 12:24 Pramipexole Dihydrochloride (Mirapex) 0.5 mg QHS GT 06/21/20 21:00 06/24/20 21:13 Rivaroxaban (Xarelto) 20 mg DAILY PEG 06/22/20 09:00 06/25/20 09:44 Rivaroxaban (Xarelto) 20 mg DAILY@18 PEG 06/21/20 18:00 06/21/20 16:25 DC Senna (Senokot) 1 tab QHS PO 06/21/20 21:00 06/24/20 21:13 Venlafaxine HCl (Effexor) 112.5 mg BID PEG 06/21/20 21:00 06/25/20 09:44 MIGUEL FELIPE MD Jun 25, 2020 12:52
[2020-06-25 14:00] VITALS: BP 140/62
[2020-06-25 20:00] VITALS: BP 134/60
[2020-06-25] MEDS: ASPIRIN 81 MG CHEW TABLET PEG SCH (20:53)
[2020-06-25] MEDS: NEBIVOLOL 5 MG TAB (BYSTOLIC) PEG SCH (20:53)
[2020-06-25] MEDS: PRAMIPEXOLE 0.25 MG TAB GT SCH (20:54)
[2020-06-25] MEDS: SENNA 8.6 MG TAB (SENOKOT) PO SCH (20:55)
[2020-06-26] MEDS: oxyCODONE 5MG TAB PEG PRN ×3 (02:15→20:16)
[2020-06-26 06:00] VITALS: BP 143/81
[2020-06-26] MEDS: IPRATROPIUM 0.5MG/ALBUTEROL 2.5MG INH SOL UD 3ML (DUONEB) NEB SCH ×3 (06:02→17:56)
[2020-06-26] MEDS: ACETAMINOPHEN 325 MG/10.15 ML UDC GT PRN ×2 (06:54→13:41)
[2020-06-26 08:13] LABS: BASO % 0.2 % (0.0-1.0); EOS # 0.3 10^3/uL (0.0-0.5); EOS % 2.6 % (0.0-3.0); HEMATOCRIT 32.3 % (42.0-52.0); HEMOGLOBIN 10.1 g/dl (13.5-17.5); LYMPH # 0.8 10^3/uL (1.5-5.0); LYMPH % 8.1 % (24.0-44.0); MEAN CORPUSCULAR HEMOGLOBIN 32.5 pg (27.0-33.0); MEAN CORPUSCULAR HGB CONC 31.3 g/dl (32.0-36.5); MEAN CORPUSCULAR VOLUME 103.9 fl (80.0-96.0); MONO # 0.7 10^3/uL (0.0-0.8); MONO % 6.9 % (0.0-5.0); NEUTROPHILS # 8.2 10^3/uL (1.5-8.5); NEUTROPHILS % 81.3 % (36.0-66.0); PLATELET COUNT, AUTOMATED 255 10^3/uL (150-450); RED BLOOD COUNT 3.11 10^6/uL (4.30-6.10)
[2020-06-26 08:24] LABS: BLOOD UREA NITROGEN 16 MG/DL (7-18); CALCIUM LEVEL 9.1 MG/DL (8.8-10.2); CARBON DIOXIDE LEVEL 29 MEQ/L (21-32); CHLORIDE LEVEL 99 MEQ/L (98-107); CREATININE FOR GFR 0.61 MG/DL (0.70-1.30); GLOMERULAR FILTRATION RATE > 60.0 (>42); GLUCOSE, FASTING 117 MG/DL (70-100); POTASSIUM SERUM 4.6 MEQ/L (3.5-5.1); SODIUM LEVEL 135 MEQ/L (136-145)
[2020-06-26] MEDS: guaiFENesin SYRUP 200 MG/10 ML UDC PO SCH ×3 (08:26→22:17)
[2020-06-26] MEDS: RIVAROXABAN 20 MG TAB (XARELTO) PEG SCH (08:26)
[2020-06-26] MEDS: CYANOCOBALAMIN 500 MCG TAB PEG SCH (08:26)
[2020-06-26] MEDS: FOLIC ACID 1 MG TAB PEG SCH (08:26)
[2020-06-26] MEDS: levETIRAcetam ORAL SOLUTION 500 MG/5 ML UDC GT SCH ×2 (08:26→22:17)
[2020-06-26] MEDS: LACTOBACILLUS ACIDOPHILUS CAP (BACID) PEG SCH ×3 (08:26→20:15)
[2020-06-26] MEDS: REMEDY PHYTOPLEX Z-GUARD PASTE 113GM TUBE (FROM STOREROOM PRODUCT) TOP SCH ×3 (08:27→22:23)
[2020-06-26] MEDS: LANSOPRAZOLE SUSPENSION 30 MG/10 ML ORAL SYRINGE (FIRST-LANSOPRAZOLE) GT SCH (08:27)
[2020-06-26] MEDS: VENLAFAXINE 37.5 MG TAB PEG SCH ×2 (08:27→20:15)
[2020-06-26 09:15] VITALS: BP 157/74
[2020-06-26 09:33] VITALS: BP 137/68
[2020-06-26] MEDS ORDERED: ALPRAZolam 0.25 MG TAB PEG PRN (10:00)
[2020-06-26] MEDS ORDERED: RISATAB3 PEG (12:06)
[2020-06-26] MEDS ORDERED: LEVE15SO2 GT (12:06)
[2020-06-26] MEDS ORDERED: VITA500T40 PEG (12:06)
[2020-06-26] MEDS ORDERED: MIRA0.254 GT (12:06)
[2020-06-26] MEDS ORDERED: XARE20TA PEG (12:06)
[2020-06-26] MEDS ORDERED: FOLI1TAB11 PEG (12:06)
[2020-06-26] MEDS ORDERED: BYST5TAB2 PEG (12:06)
[2020-06-26] MEDS ORDERED: VENL75CA47 PO (12:06)
[2020-06-26] MEDS ORDERED: MAGICMW SS (12:06)
[2020-06-26] MEDS ORDERED: Lansoprazole Suspension GT (12:06)
[2020-06-26] MEDS ORDERED: ASPI81CH8 PEG (12:06)
[2020-06-26 14:00] VITALS: BP 144/65
--- NOTE | 2020-06-26 15:57 | IPNPDOC ---
PM&R Progress Note DATE OF SERVICE: Jun 26, 2020 [employer] Progress Note Subjective: patient seen in his room awake and alert stating he would like to go home, but is willing to work on transfers at a wheelchair level with oxygen. REVIEW OF SYSTEMS: The following is a completed review of systems and has been reviewed. Review of systems otherwise unremarkable. PAIN: Patient self reports no pain at rest EYES: No recent vision changes EARS, NOSE, & THROAT: +dysphagia CARDIOVASCULAR: Denies chest pain or palpitations PULMONARY: Denies shortness of breath at rest, + with exertion GASTROINTESTINAL: Denies constipation/diarrhea GENITOURINARY:denies dysuria MUSCULOSKELETAL: generalized weakness NEUROLOGICAL:denies paresthesias HEMATOLOGICAL:+anemia SKIN: +Peg, denies rash PSYCHIATRIC: Unremarkable All other review of systems found to be negative. PHYSICAL EXAMINATION: VITAL SIGNS: Please see below. GENERAL: Pleasant and cooperative. No acute distress. thin HEENT: PERRL. Extraocular movements intact. Clear conjunctiva CARDIOVASCULAR: Regular rate and rhythm. No murmurs, rubs, or gallops LUNGS: Clear to auscultation bilaterally. No wheezes. No rhonchi ABDOMEN: Soft, nontender, nondistended. Positive bowel sounds. Normal active bowel sounds. +PEG NEUROLOGICAL: Alert and oriented times three. Cranial nerves II through XII luis sly intact. Sensation grossly intact EXTREMITIES: 5\5 strength bilateral upper extremities. 5-\5 strength right lower extremity 5-/5 strength in left lower extremity. range of motion in left lower extremity. SKIN: no sacral rash/erythema, PEG site c/d/i ASSESSMENT:69-year-old M with past medical history of tongue cancer stage 4 who presents status post aspiration PNA with PEG PLAN: 1. Rehab- PT/OT advance mobility ADLs, strengthen/stretch/maintain ROM all 4limbs, energy conservation 2. CArdiac- hx of HTN, c/u beta-shivani, will hold ARB as recent hypotension and restart if permitted -medicine consulted to assist in overall management 3. Resp- c/u augmentin for aspiration PNA in setting of PEG due to dysphgagia from tongue cancer, praveen/Sulma, 02 prn -Free water Darryn protocol in place, patient understands risk of aspiration PNA which should be mitigated with thorough oral care, but still a possibility, and he still prefers to have some water for pleasure -will write script for home 02 -Hx of pE/DVT c/u xarelto 4. GI- c/u PPI, PEG with tub feeds, HOB >30 5. Pain- c/u tylneol and oxycodone, will avoid fentanyl to avoid lethargy- patiet does well on 5mg oxycodone q4h, but was too lethargic with 7.5mg 6. Neuro- patient on Keppra for possible seizures hx 7. Psych- c/u xanax for anxiety and effexor for depression 8. Heme/onc- anemia of chronic disease and B12 deficiency, s/p 3 units prbcs, FOBT negative, c/u b12 -tongue cancer stage 4 ,will receive radiation upon discharge 9. Dispo- 06-27-20 to home with - discussed case with who will contact palliative care for help with pain management and to get more assistance in the home Allergies Coded Allergies: Hfhmkdr-Oek-Xmg Reductase Inhibitor (Verified Allergy, Unknown, 03/27/20) morphine (Verified Adverse Reaction, Intermediate, confusion and memory loss, 03/27/20) Vital Signs Vital Signs Date Time Temp Pulse Resp B/P (MAP) Pulse Ox O2 Delivery O2 Flow Rate FiO2 06/26/20 14:00 98.0 71 20 144/65 (91) 98 Nasal Cannula 2.0 Laboratory Data CBC/BMP Laboratory Tests 06/26/20 07:32 Labs 24H Laboratory Tests 2 06/26/20 07:32: Immature Granulocyte % (Auto) 0.9, Neutrophils (%) (Auto) 81.3H, Lymphocytes (%) (Auto) 8.1L, Monocytes (%) (Auto) 6.9H, Eosinophils (%) (Auto) 2.6, Basophils (%) (Auto) 0.2, Neutrophils # (Auto) 8.2, Lymphocytes # (Auto) 0.8L, Monocytes # (Auto) 0.7, Eosinophils # (Auto) 0.3, Basophils # (Auto) 0.0, Nucleated Red Blood Cells % (auto) 0.0, Anion Gap 7L, Glomerular Filtration Rate > 60.0, Calcium Level 9.1 Current Medications Current Medications Current Medications Medications (Trade) Dose Ordered Sig/Robin Route PRN Reason Start Time Stop Time Status Last Admin Dose Admin Acetaminophen (Tylenol Suspension) 650 mg Q6HP PRN GT PAIN OR FEVER 06/21/20 16:00 06/26/20 13:41 Acetaminophen (Tylenol Tab) 650 mg Q4HP PRN PO MILD PAIN (PS 1-4) 06/21/20 16:15 06/21/20 16:26 DC Albuterol/ Ipratropium (Duoneb (Ipr 0.5mg/Alb 2.5mg)) 3 ml TID NEB 06/21/20 21:00 06/26/20 14:50 Alprazolam (Xanax) 0.25 mg Q8HP PRN PEG ANXIETY 06/26/20 10:00 Alprazolam (Xanax) 0.5 mg Q8HP PRN PEG ANXIETY 06/21/20 16:00 06/26/20 09:55 DC 06/25/20 20:54 Amoxicillin/ Clavulanate Potassium (Augmentin) 875 mg BID PEG 06/21/20 21:00 06/26/20 07:19 DC 06/25/20 20:53 Aspirin (Aspirin Chewable) 81 mg QHS PEG 06/21/20 21:00 06/25/20 20:53 Cyanocobalamin (Vitamin B12) 500 mcg DAILY PEG 06/22/20 09:00 06/26/20 08:26 Docusate Sodium (Colace Liquid) 100 mg BID PRN GT constipation 06/24/20 10:00 Docusate Sodium (Colace) 100 mg BID PO 06/21/20 21:00 06/24/20 09:59 DC 06/24/20 08:20 Fentanyl (Duragesic) 25 mcg Q72H TOP 06/21/20 16:15 06/21/20 16:25 DC Folic Acid (Folic Acid) 1 mg DAILY PEG 06/22/20 09:00 06/26/20 08:26 Guaifenesin (Robitussin) 5 ml TID PO 06/22/20 16:00 06/26/20 08:26 Home Med (Med Rec Complete!) ASDIRECTED XX 06/21/20 15:30 06/21/20 15:26 DC Lactobacillus Acidophilus (Bacid) 1 ea TID PEG 06/21/20 16:00 06/26/20 08:26 Lansoprazole (First-Lansoprazole Oral Suspension) 30 mg DAILY GT 06/22/20 09:00 06/26/20 08:27 Levetiracetam (Keppra Oral Solution) 500 mg BID GT 06/21/20 21:00 06/26/20 08:26 Lidocaine/ Diphenhydr/Alum/ Mg/Simeth (Magic Mouthwash) 5ml Q4HP PRN SS DISCOMFORT 06/21/20 16:00 06/25/20 20:54 Nebivolol (Bystolic) 5 mg QHS PEG 06/21/20 21:00 06/25/20 20:53 Non-Formulary Medication ( See Comment Field Below ) 1 ASDIRECTED TD 06/21/20 16:15 06/21/20 16:25 DC Oxycodone HCl (Roxicodone, Oxyir) 5 mg Q4HP PRN PEG PAIN 06/21/20 16:00 06/25/20 10:32 DC 06/25/20 05:53 Oxycodone HCl (Roxicodone, Oxyir) 5 mg Q4HP PRN PEG PAIN 06/26/20 10:00 Oxycodone HCl (Roxicodone, Oxyir) 7.5 mg Q4HP PRN PEG PAIN 06/25/20 10:45 06/26/20 09:33 DC 06/26/20 06:54 Pramipexole Dihydrochloride (Mirapex) 0.5 mg QHS GT 06/21/20 21:00 06/25/20 20:54 Rivaroxaban (Xarelto) 20 mg DAILY PEG 06/22/20 09:00 06/26/20 08:26 Rivaroxaban (Xarelto) 20 mg DAILY@18 PEG 06/21/20 18:00 06/21/20 16:25 DC Senna (Senokot) 1 tab QHS PO 06/21/20 21:00 06/24/20 21:13 Venlafaxine HCl (Effexor) 112.5 mg BID PEG 06/21/20 21:00 06/26/20 08:27 MIGUEL FELIPE MD Jun 26, 2020 15:56
[2020-06-26] MEDS: PRAMIPEXOLE 0.25 MG TAB GT SCH (20:15)
[2020-06-26] MEDS: SENNA 8.6 MG TAB (SENOKOT) PO SCH (20:15)
[2020-06-26] MEDS: ASPIRIN 81 MG CHEW TABLET PEG SCH (20:15)
[2020-06-26 20:30] VITALS: BP 131/68
[2020-06-26 22:17] VITALS: BP 122/63
[2020-06-26] MEDS: NEBIVOLOL 5 MG TAB (BYSTOLIC) PEG SCH (22:17)
[2020-06-27] MEDS: oxyCODONE 5MG TAB PEG PRN (01:11)
[2020-06-27 06:00] VITALS: BP 131/70
[2020-06-27] MEDS: IPRATROPIUM 0.5MG/ALBUTEROL 2.5MG INH SOL UD 3ML (DUONEB) NEB SCH (06:08)
[2020-06-27] MEDS: LANSOPRAZOLE SUSPENSION 30 MG/10 ML ORAL SYRINGE (FIRST-LANSOPRAZOLE) GT SCH (08:40)
[2020-06-27] MEDS: levETIRAcetam ORAL SOLUTION 500 MG/5 ML UDC GT SCH (08:41)
[2020-06-27] MEDS: LACTOBACILLUS ACIDOPHILUS CAP (BACID) PEG SCH (08:41)
[2020-06-27] MEDS: CYANOCOBALAMIN 500 MCG TAB PEG SCH (08:41)
[2020-06-27] MEDS: VENLAFAXINE 37.5 MG TAB PEG SCH (08:41)
[2020-06-27] MEDS: RIVAROXABAN 20 MG TAB (XARELTO) PEG SCH (08:41)
[2020-06-27] MEDS: guaiFENesin SYRUP 200 MG/10 ML UDC PO SCH (08:41)
[2020-06-27] MEDS: FOLIC ACID 1 MG TAB PEG SCH (08:41)
[2020-06-27] MEDS: REMEDY PHYTOPLEX Z-GUARD PASTE 113GM TUBE (FROM STOREROOM PRODUCT) TOP SCH (08:42)
[2020-06-27 10:22] LABS: BASO % 0.2 % (0.0-1.0); EOS # 0.2 10^3/uL (0.0-0.5); EOS % 2.4 % (0.0-3.0); HEMATOCRIT 32.3 % (42.0-52.0); HEMOGLOBIN 10.3 g/dl (13.5-17.5); LYMPH % 10.6 % (24.0-44.0); MEAN CORPUSCULAR HEMOGLOBIN 32.9 pg (27.0-33.0); MEAN CORPUSCULAR HGB CONC 31.9 g/dl (32.0-36.5); MEAN CORPUSCULAR VOLUME 103.2 fl (80.0-96.0); MONO # 0.7 10^3/uL (0.0-0.8); NEUTROPHILS # 7.6 10^3/uL (1.5-8.5); NEUTROPHILS % 78.9 % (36.0-66.0); PLATELET COUNT, AUTOMATED 312 10^3/uL (150-450); RED BLOOD COUNT 3.13 10^6/uL (4.30-6.10); WHITE BLOOD COUNT 9.7 10^3/uL (4.0-10.0)
--- NOTE | 2020-06-27 12:49 | PMRDS ---
NAME: TYRA ZHOU [facility] WT ID#: [id number] JOB: [id number] HELLEN: 06/21/2020 ACCT: [id number] DOCTOR: MIGUEL FELIPE MD PMR DISCHARGE SUMMARY DATE OF ADMISSION: 06/21/2020 DATE OF DISCHARGE: 06/27/2020 CHIEF COMPLAINT/DISCHARGE DIAGNOSIS: Aspiration pneumonia in the setting of endstage tongue cancer. HISTORY OF PRESENT ILLNESS: This is a 69-year-old man with a past medical history of lung cancer status post left upper lobectomy with recurrent DVT and PE, on Xarelto, COPD, hypertension, macrocytic anemia with B12 deficiency, chronic pain, Stage IV squamous tongue cancer with PEG tube placed 05/14/20, alcohol abuse. He presented to [facility] ED on 06/17/20 with fever, lethargy and weakness. He was found to have sepsis due to left sided pneumonia. He was admitted for aspiration pneumonia, FELIX and anemia requiring 3 units of PRBCs. He was maintained on IV Zosyn with clinical improvement and transitioned to p.o. antibiotics. He was evaluated by therapy and found to have impairment in mobility and ADLs and the patient wished that he could walk further at home and more safely and in the setting of a poor medical prognosis before getting radiation for this Stage IV tongue cancer when discharged home. He requested to drink water on his rehab admission and agreed to the free water Guerra Protocol, acknowledging the risks of further aspiration. HOSPITAL COURSE: The patient was admitted and enrolled in a comprehensive PT/OT/Speech Language Pathology Program. He received 24 hour nursing supervision and weekly team meetings were held to discuss his progress. The patient was able to demonstrate his ability to clean his mouth well for the free water protocol and was deemed safe to go home drinking water with this protocol in place. He was able to tolerate his tube feeds and finished a course of Augmentin for his aspiration pneumonia. The patient required supplemental oxygen and had significant desaturations with exertion and was found to be a candidate for home oxygen. He had difficulty participating in three hours of therapy given his fatigue and poor therapy tolerance and was discharged sooner than anticipated on 06/27/20 to home at a wheelchair level. DISCHARGE MEDICATIONS: As per instructions. FUNCTIONAL HISTORY ON DISCHARGE: The patient was modified independent to standby assist at a wheelchair level. Thank you for this referral.
== END 2020-06-27 14:10 | disposition home health service (06) | DRG 392 ==
LOC: M PM&R 06-21 14:52
PROVIDERS: ADMIT Physical Medicine & Rehabilitation; ATTEND Physical Medicine & Rehabilitation
DX: R13.10 Dysphagia, unspecified (principal); Z85.118 Personal history of other malignant neoplasm of bronchus and lung; Z90.2 Acquired absence of lung [part of]; Z86.718 Personal history of other venous thrombosis and embolism; J44.9 Chronic obstructive pulmonary disease, unspecified; I10 Essential (primary) hypertension; D53.9 Nutritional anemia, unspecified; G89.29 Other chronic pain; Z93.1 Gastrostomy status; F10.10 Alcohol abuse, uncomplicated; R53.1 Weakness; Z87.891 Personal history of nicotine dependence; Z79.82 Long term (current) use of aspirin; Z79.01 Long term (current) use of anticoagulants; Z79.899 Other long term (current) drug therapy; Z88.5 Allergy status to narcotic agent; Z88.8 Allergy status to other drugs, medicaments and biological substances; C02.9 Malignant neoplasm of tongue, unspecified; F41.9 Anxiety disorder, unspecified; F32.9 Major depressive disorder, single episode, unspecified

== ENCOUNTER 2020-06-25 09:49 | Outpatient (RCR) | payer MEDICARE, BC ==
[~2020-06-25 09:49] MED LIST changes: +AUGM875T28 PO; +BACI1CAP PO; +CETACAINE SPRAY 5GM MT ONE
--- NOTE | 2020-06-25 11:30 | RADENCPD ---
Date/Time of Encounter Date of Encounter: Jun 25, 2020 Time of Encounter: 11:00 Encounter Joel came to the radiation oncology department for planning. He is alert and oriented x3. Complains of continued oral pain. We reviewed the plan to proceed with chemoradiation to begin once he is discharged from rehab. I reviewed the side effects he can expect, oral pain some degree will be permanent most likely, mucositis, xerostomia, permanent dysphagia, fatigue and skin reaction. He accepts these risks and wishes to proceed. I also performed flexible laryngoscopy to assess the extent of the primary tumor: Joel provided verbal consent for the procedure. Cetacaine spray was first intr oduced in the left nostril. This elicited a gag. The scope was introduced in the left nare, the septum was notably deviated, there was copious dried blood in the vestibule, and I was unable to pass the scope through this. I then proceeded to anesthetize the right nare with cetacaine. Upon introducing the scope there was copious dried blood, the scope passed easily through the nasopharynx which was difficult to visualize due to the dried blood and thick mucus present. Upon visualization of the posterior pharyngeal wall the patient gagged and requested the scope withdrawn. After an appropriate pause we tried again, and again he gagged with the scope in the oropharynx. This was tried a third time and the scope was finally passed to the oropharynx without gag, the posterior pharyngeal was normal appearing with thick clear mucus adherent. The right base of tongue was normal appearing. On the left base of tongue there is a cessile but bulky tumor extending caudally to the vallecula with rufus involvement. The BL py riform sinuses and AE folds are clear. The larynx is free and mobile without lesions. The scope was withdrawn. On exam of the oral cavity there is approimately 7 cm of palpable tumor encompassing the whole of the left tongue, with ulceration and scant bloody drainage inferior to the lateral margin of the left tongue. There is palpable extension into the FOM, and the tumor is palpable in the left BOT correlating well with scope exam. There are no buccal mucosal lesions or other signs of cancer elsewhere in the oral cavity or visible oropharynx. The neck was chávez- tender on exam, and I did palpate a left level II LN which is firm and mobile. Assessment: [id number] (sasha stage based on CT imaging, several small suspicous nodes) Informed consent for treatment was obtained. Proceed to simulation RON VALVERDE MD Jun 25, 2020 11:30
[2020-06-26] MEDS ORDERED: VENL75CA47 PO (12:06)
[2020-06-26] MEDS ORDERED: Lansoprazole Suspension GT (12:06)
[2020-06-26] MEDS ORDERED: FOLI1TAB11 PEG (12:06)
[2020-06-26] MEDS ORDERED: LEVE15SO2 GT (12:06)
[2020-06-26] MEDS ORDERED: MIRA0.254 GT (12:06)
[2020-06-26] MEDS ORDERED: VITA500T40 PEG (12:06)
[2020-06-26] MEDS ORDERED: BYST5TAB2 PEG (12:06)
[2020-06-26] MEDS ORDERED: RISATAB3 PEG (12:06)
[2020-06-26] MEDS ORDERED: XARE20TA PEG (12:06)
[2020-06-26] MEDS ORDERED: MAGICMW SS (12:06)
[2020-06-26] MEDS ORDERED: ASPI81CH8 PEG (12:06)
[2020-07-02] MEDS ORDERED: XARE10TA PEG (10:02)
[2020-07-02] MEDS ORDERED: ONDA8TAB10 PO (14:31)
[2020-07-02] MEDS ORDERED: PROC10TA4 PO (14:31)
== END 2020-07-11 ==
LOC: M ONCR 09:49
PROVIDERS: ATTEND General Practice
DX: C02.3 Malignant neoplasm of anterior two-thirds of tongue, part unspecified (principal)

== ENCOUNTER → 2020-07-24 | Outpatient (CLI) | payer MEDICARE, BC ==
[~2020-07-24] MED LIST changes: +ASPI81CH8 PEG; +BYST5TAB2 PEG; -CETACAINE SPRAY 5GM MT ONE; +FENT50DI5 TD; +FOLI1TAB11 PEG; +LEVE15SO2 GT; +LIDOCAINE 1% MDV 20ML VIAL As Ordered ONE; +Lansoprazole Suspension GT; +MAGICMW SS; +MAGICMW SSP; +MIDAZOLAM INJ 2MG/2ML VIAL (J2250 PER 1MG) As Ordered ONE; +MIRA0.254 GT; +ONDA8TAB10 PO; +OXYC1SOL3 PO; +PROC10TA4 PO; +RISATAB3 PEG; +VITA500T40 PEG; +XARE10TA PEG; +XARE20TA PEG; +ceFAZolin 1GM VIAL (J0690 PER 500MG) As Ordered ONE; +diphenhydrAMINE 50MG/ML VIAL (J1200) As Ordered ONE; +fentaNYL 100 MCG/2 ML INJECTION (J3010) As Ordered ONE
--- NOTE | 2020-07-24 12:56 | IRHP ---
[facility] IR Pre-Procedure H & P General Date of Service: Jul 24, 2020 Procedure: Same Day Surgery Interval History and Physical I have seen the patient and reviewed last H & P performed within 30 days. There is no significant interval change. History of Present Illness Chief Complaint The patient is a 69-year-old male admitted with a reason for visit of Tongue Ca. PRE-PROCEDURE DIAGNOSIS: tongue cancer HEART: normal rate. LUNGS: normal breathing at rest. ASA Classification ASA Classification: III-Severe systemic dis. Mallampati Score: II NPO: Yes Problems with prior sedation: No Obstructive Sleep Apnea: No Plan moderate sedation Allergies Coded Allergies: Vyxsulx-Joz-Odz Reductase Inhibitor (Verified Allergy, Unknown, 03/27/20) morphine (Verified Adverse Reaction, Intermediate, confusion and memory loss, 03/27/20) Home Medications Scheduled Bacillus Coagulans (Bacid with Lactospore), 1 CAP PO TID Cyanocobalamin (Vitamin B-12) (Vitamin B-12), Unknown Dose IM QWEEK, (Reported) Folic Acid (Folic Acid), 1 MG PEG DAILY L.acidoph/L.bulg/B.bif/S.therm (Svetlana-Bid Caplet), 1 EA PEG TID Levetiracetam (Levetiracetam), 500 MG GT BID Pramipexole Di-HCl (Mirapex), 0.5 MG GT QHS Rivaroxaban (Xarelto), 10 MG PEG DAILY Venlafaxine HCl (Venlafaxine HCl ER), 225 MG PO QHS [Lansoprazole Suspension], 30 MG GT DAILY Scheduled PRN Alprazolam (Alprazolam), 0.5 MG PO Q8H PRN for ANXIETY/AGITATION, (Reported) Magic Mouthwash (First-Mouthwash Blm), 10 ML SSP QID PRN for MUCOSITIS Ondansetron HCl (Ondansetron HCl), 8 MG PO Q8H PRN for NAUSEA OR VOMITING Oxycodone HCl (Oxycodone HCl), 5 ML PO Q4HP PRN for pain Prochlorperazine Maleate (Prochlorperazine Maleate), 10 MG PO Q8H PRN for NAUSEA OR VOMITING Trazodone HCl (Trazodone HCl), 50 MG PO QHSP PRN for SLEEP, (Reported) Discontinued Medications Aspirin (Children's Aspirin), 81 MG PEG QHS Discontinued Reason: Pt states not taking Magic Mouthwash (First-Mouthwash Blm), 0 EA SS Q4HP PRN for DISCOMFORT RACHEL BRASWELL MD Jul 24, 2020 12:56
[2020-07-24 15:35] VITALS: BP 100/59
--- NOTE | 2020-07-25 15:47 | POST-OPPD ---
Postoperative Procedure Note Date Of Procedure: Jul 24, 2020 Time Of Procedure: 16:00 IR ultrasound and fluoroscopy guided port placement IR Ultrasound of the neck. IR Moderate sedation. Clinical indication: Headache and neck cancer Physician: Dr. Leyva. Procedure: The patient was advised of the benefits, risks, and alternatives of the procedure and informed consent was obtained. A time-out was performed with verification of the patient's name, MRN, site of procedure and type of procedure to be performed. The patient was positioned in the supine position on the angiographic table. The site was prepped and draped in the usual sterile fashion. Moderate sedation was performed by the physician including the presence of an independent trained RN who assisted and monitored the patient's level of consciousness and physiologic status. Following the administration of fentanyl and Versed , the physician spent 45 minutes of continuous face to face time with the patient. Ultrasound of the neck reveals a patent and compressible right internal jugular vein. A water ski assembler radiograph reveals increased right lung markings. The neck and anterior chest wall were anesthetized with lidocaine. The right internal jugular vein was accessed using a microintroducer needle under ultrasound guidance, via a lateral approach. An 018 wire was advanced into the superior vena cava, the needle was removed and a microsheath was placed. An Amplatz wire was then passed into the inferior vena cava. An incision at the internal jugular vein access site and anterior chest wall were made using a scalpel. An incision was made at the anterior chest wall. A small pocket was created using a combination of blunt and sharp dissection. A tunneling device was then used to pass the catheter from the pocket to the neck puncture site. An 8- Maltese Angio Padcom Smart power port was then positioned in the pocket. The catheter was then measured and cut. The introducer sheath was exchanged for a peel-away sheath. The catheter was passed through the peel-away sheath into the internal jugular vein and the peel-away sheath was removed. The port tip was positioned at the cavoatrial junction. The port was then accessed with a Grimaldo needle. The port flushes and aspirates well. The puncture site in the neck was closed. The chest wall incision was then closed with 2-0 Vicryl and 4-0 Monocryl. Glue and Steri- Strips were applied. A sterile dressing was then applied. The patient tolerated the procedure well and was returned to the PRU in stable condition. Estimated blood loss: <5 ml. Complications: None. Conclusion: 1. Successful placement of an 8-Maltese Angio dynamics Smart power port via the right internal jugular vein. The port is ready for immediate use. 2. Patient to follow up in IR clinic in 2 weeks. Thank you for this referral. RACHEL LEYVA MD Jul 25, 2020 15:47
== END ==
LOC: M IRPRO 12:09
PROVIDERS: ATTEND Radiology Diagnostic Radiology
DX: C02.9 Malignant neoplasm of tongue, unspecified (principal); Z79.899 Other long term (current) drug therapy; Z88.8 Allergy status to other drugs, medicaments and biological substances
CPT/HCPCS: 36561; 99152; 99153; C1769; C1788; C1894; J0690; J1200; J1642; J1644; J2250; J3010

== ENCOUNTER → 2020-07-25 | Outpatient (CLI) | payer MEDICARE, BC ==
[~2020-07-25] MED LIST changes: +ISOVUE-300 61% 50ML VIAL As Ordered ONE; -MIDAZOLAM INJ 2MG/2ML VIAL (J2250 PER 1MG) As Ordered ONE; -diphenhydrAMINE 50MG/ML VIAL (J1200) As Ordered ONE
[2020-07-25 13:00] VITALS: BP 112/56
--- NOTE | 2020-07-25 15:58 | POST-OPPD ---
Postoperative Procedure Note Date Of Procedure: Jul 25, 2020 Time Of Procedure: 15:50 IR Gastrostomy Replacement Gastrostomy catheter replacement with fluoroscopic guidance Clinical Information:Head and neck cancer. G-tube fell out. Physician: Dr. Leyva. Procedure: The patient was advised of the benefits, risks, and alternatives of the procedure and informed consent was obtained. A time out was performed with verification of the patient's name, MRN, site of procedure, and type of procedure to be performed. The patient was positioned in the supine position on the angiographic table. The site was prepped and draped in the usual sterile fashion. Moderate sedation was not required. Fentanyl was administered for analgesia. The physician spent 30 minutes of continuous [id number] time with the patient. A beam press operator radiograph reveals no G tube. The soft tissues surrounding the previously created gastrostomy catheter tract were anesthetized with lidocaine. The previous gastrostomy catheter tract was probed with a wire and kumpe catheter, under fluoroscopic guidance. The wire was removed and injection of contrast confirmed, successful catheterization of the stomach and demonstrates rugal folds. The catheter was removed over a wire. The tract was serially dilated under fluoroscopic guidance and a 20 F peel away sheath was advanced into the stomach. A new 18 Indonesian NICOLASA gastrostomy catheter was advanced through the peel-away sheath, over the wire, into the stomach under fluoroscopic guidance. The retention balloon was insufflated and retracted to the stomach wall. The catheter positioning within the stomach was confirmed by injection of contrast. A sterile dressing was applied. The patient tolerated the procedure well and was returned to the PRU in stable condition. EBL: < 5 mL. Complications: None. Conclusion: 1. Successful replacement of an 18 F Indonesian gastrostomy catheter. 2. The gastrostomy tube may be used. Cc RACHEL Rainey MD Jul 25, 2020 15:58
== END ==
LOC: M IRPRO 10:00
PROVIDERS: ATTEND Radiology Diagnostic Radiology
DX: Z43.1 Encounter for attention to gastrostomy (principal)
CPT/HCPCS: 43762; C1729; C1769; C1887; J0690; J1642; J3010; Q9967

== ENCOUNTER 2020-08-09 11:15 | Outpatient (RCR) | payer MEDICARE, BC ==
--- NOTE | 2020-07-19 11:46 | RADENCPD ---
Date/Time of Encounter Date of Encounter: Jul 19, 2020 Time of Encounter: 11:43 Encounter Met with Joel and Jane today. He reports he is feeling well, slept well and using PEG more effectively. He is satting 98% on RA. Gave instructions for salt and soda rinses, as well as refill of oxycodone liquid in anticipation of mucositis, which will be Grade 3 and extensive. They are pleased with how chemotherapy went yesterday no nausea, no additional fatigue. RON VALVERDE MD Jul 19, 2020 11:46
[~2020-08-09 11:15] MED LIST changes: -ISOVUE-300 61% 50ML VIAL As Ordered ONE; -LIDOCAINE 1% MDV 20ML VIAL As Ordered ONE; -ceFAZolin 1GM VIAL (J0690 PER 500MG) As Ordered ONE; -fentaNYL 100 MCG/2 ML INJECTION (J3010) As Ordered ONE
[2020-08-12] MEDS ORDERED: OXYC1SOL3 PO (11:52)
== END 2020-08-11 ==
LOC: M ONCR 11:15
PROVIDERS: ATTEND General Practice
DX: C02.3 Malignant neoplasm of anterior two-thirds of tongue, part unspecified (principal)

== ENCOUNTER → 2020-08-13 | Outpatient (POV) | payer MEDICARE, BC ==
--- NOTE | 2020-08-15 14:43 | IRPN ---
[facility] IR Progress Note IR Progress Note DATE: Aug 13, 2020 Follow-up will be re scheduled. Allergies Coded Allergies: Corelcl-Zko-Tot Reductase Inhibitor (Verified Allergy, Unknown, 03/27/20) morphine (Verified Adverse Reaction, Intermediate, confusion and memory loss, 03/27/20) RACHEL BRASWELL MD Aug 15, 2020 14:42
== END ==
LOC: M TMIRPOV 09:45
PROVIDERS: ATTEND Radiology Diagnostic Radiology
DX: Z45.2 Encounter for adjustment and management of vascular access device (principal)

== ENCOUNTER 2020-09-03 11:07 | Outpatient (RCR) | payer MEDICARE, BC ==
[~2020-09-03 11:07] MED LIST changes: +CONS10SO3 PO
[2020-09-11] MEDS ORDERED: OXYC1SOL3 PO (10:48)
[2020-09-11] MEDS ORDERED: FENT50DI5 TD (10:48)
== END 2020-09-08 ==
LOC: M ONCR 11:07
PROVIDERS: ATTEND General Practice
DX: C02.3 Malignant neoplasm of anterior two-thirds of tongue, part unspecified (principal)

== ENCOUNTER → 2020-09-11 | Outpatient (CLI) | payer MEDICARE, BC ==
[~2020-09-11] MED LIST changes: +AMOX500C PO; +LIDO2SOL9; +MORP30TASA PO; +PENT400T22; +PENT400T47 PO; +VITA100020 PO
--- NOTE | 2020-09-11 10:47 | RADENCPD ---
Date/Time of Encounter Date of Encounter: Sep 11, 2020 Time of Encounter: 10:34 Encounter Joel came in for a 1 week follow up s/p completion of chemoradiation on 09/03/20. He is doing 6 cans TF per PEG per 24 hour period and tolerating this well. He has stable pain in the mouth, but notes some mucosal bleeding both from the gums and nose over the past 3 days. This is not copious. He is working with WIRELESS ARCHITECT at home, as well as continuing good oral hygiene with salt and soda rinses several times daily. He is almost out of pain medication, but is tolerating things on 50 mcg fentanyl and oxycodone PRN for breakthrough. Objective: Wt 114 (from 109) BP 82/62 Exam: OPX with mucositis, some minor bleeding from the gingival mucosa and palate noted BL. No thrush. No sign of residual tumor, only pale mucosa left oral tongue. Right nasal ala with dried blood noted. Assessment: CTCAE grade 3 mucositis. Likely at peak intensity based on course. Expect this to resolve. Increased weight is reassuring. Further signs of tongue tumor regression on exam. Overall this is steady positive progress. Plan: Refill fentanyl and oxycodone Afrin 1 puff BID for nose bleed [place] spray for nasal irrigation PRN Follow up in 3 weeks, or sooner if need arises RON VALVERDE MD Sep 11, 2020 10:47
== END ==
LOC: M ONCR 10:05
PROVIDERS: ATTEND General Practice
DX: C02.3 Malignant neoplasm of anterior two-thirds of tongue, part unspecified (principal)

== ENCOUNTER → 2020-10-02 | Outpatient (CLI) | payer MEDICARE, BC ==
--- NOTE | 2020-10-02 11:41 | RADENCPD ---
Date/Time of Encounter Date of Encounter: Oct 02, 2020 Time of Encounter: 11:37 Encounter oJel came in for a brief follow today to assess his healing s/p chemoradiation for his very locally advanced tongue cancer. He reports he is eating soft foods and doing nocturnal TF. His weight is stable. Taste sensations still absent. He is not experiencing any significant aspiration at this time. He has home [employer] services in place. He does have ongoing oral pain 6/10 responsive to current narcotic regimen. On exam there are no cervical nodes appreciated. There is expected post RT fibrosis of the neck. No trismus. On the left lateral tongue there is <1cm left of visible tumor. No ulceration. There is evidence of active scarring and fibrosis of the left tongue. No remaining mucositis. Assessment: Ongoing favorable clinical response in tumor and improving nutritional status. Plan: Continue PEG tube, encourage PO feeding and wean from pain medications as able. PET-CT upcoming as previously scheduled RON VALVERDE MD Oct 02, 2020 11:41
== END ==
LOC: M ONCR 10:39
PROVIDERS: ATTEND General Practice
DX: C02.3 Malignant neoplasm of anterior two-thirds of tongue, part unspecified (principal); Z92.3 Personal history of irradiation

== ENCOUNTER → 2020-10-29 | Outpatient (CLI) | payer MEDICARE ==
[~2020-10-29] MED LIST changes: -LIDO2SOL9; -MORP30TASA PO; -PENT400T22; +SODIUM CHLORIDE 0.9% INJ 10 ML SYR IV PRN; +SODIUM CHLORIDE 0.9% INJ 10 ML SYR IV SCH
--- NOTE | 2020-10-29 15:52 | RADENCPD ---
Date/Time of Encounter Date of Encounter: Oct 29, 2020 Time of Encounter: 15:45 Encounter Joel came in today for a brief follow up. He has developed exposed bone in the anterior mandible BL. He saw Dr. Lares who recommended HBO treatment. I agree with this. He has been referred to the wound care center. On my exam there are 2 small patches of exposed bone on the anterior mandible roughly 3 mm in size right and left. In addition the tongue tumor site appears white, necrotic without ulceration, ~ 3 cm in size. Joel called to my attention a left cervical nodule which has come up in the last week on exam this is firm and fixed/non-tender. I explained that based on my exam I am concerned that he has 1) ORN of the mandible and 2) recurrent tumor in the primary site and left neck cervical node To evaluate I have ordered a CT maxillofacial neck with contrast stat. If there is recurrent tumor then I think he would benefit from multidisciplinary input from surgery and medical oncology. For the ORN, I am not opposed to HBO, but if there is active tumor present then I think that should be dealt with first. To aid in healing of the mucosa I have prescribed amoxicillin for a 21 days course in addition to pentoxifylline and vitamin E which are known to aid in healing ORN. I will call him back with the CT results and direct his care appropriately. If there is suggestion of a metastatic node then I will obtain biopsy. His PET-CT scheduled for November could then be moved up to aid in further decision making. RON VALVERDE MD Oct 29, 2020 15:52
[2020-10-29 16:20] LABS: ALBUMIN 3.2 GM/DL (3.2-5.2); ALT/SGPT 16 U/L (12-78); BILIRUBIN,TOTAL 0.2 MG/DL (0.2-1.0); BLOOD UREA NITROGEN 19 MG/DL (7-18); CALCIUM LEVEL 9.5 MG/DL (8.8-10.2); CARBON DIOXIDE LEVEL 29 MEQ/L (21-32); CHLORIDE LEVEL 104 MEQ/L (98-107); CREATININE FOR GFR 0.48 MG/DL (0.70-1.30); GLOMERULAR FILTRATION RATE > 60.0 (>42); GLUCOSE, FASTING 95 MG/DL (70-100); POTASSIUM SERUM 4.1 MEQ/L (3.5-5.1); SODIUM LEVEL 138 MEQ/L (136-145); TOTAL PROTEIN 7.6 GM/DL (6.4-8.2)
--- NOTE | 2020-10-30 08:25 | RADENCPD ---
Date/Time of Encounter Date of Encounter: Oct 30, 2020 Time of Encounter: 08:21 Encounter Spoke with Keesha, conveyed the results of the CT showing sasha recurrence in the left neck. Ongoing primary site involvement was not conclusive based on this study. He has failed chemoradiation based on this sasha progression. I explained next steps are confirmatory biopsy of the left neck node, I will refer to IR for this, and PET-CT to assess for metastatic disease and also to clarify whether there is ongoing primary site involvement. Keesha was tearful but agreed to move forward with the plan. Once diagnostics are completed, I will present him for multidisciplinary input. RON VALVERDE MD Oct 30, 2020 08:25
== END ==
LOC: M ONCR 14:29
PROVIDERS: ATTEND General Practice
DX: C02.3 Malignant neoplasm of anterior two-thirds of tongue, part unspecified (principal)

== ENCOUNTER → 2020-10-29 | Outpatient (CLI) | payer MEDICARE ==
[~2020-10-29] MED LIST changes: +ISOVUE-370 76% 100ML VIAL As Ordered ONE; +LIDO2SOL9; +MORP30TASA PO; +PENT400T22; -SODIUM CHLORIDE 0.9% INJ 10 ML SYR IV PRN; -SODIUM CHLORIDE 0.9% INJ 10 ML SYR IV SCH
--- NOTE | 2020-10-29 19:22 | REPVR ---
PROCEDURE INFORMATION: Exam: CT Neck With Contrast Exam date and time: 10/29/2020 4:51 PM Age: 70 years old Clinical indication: Condition or disease; Cancer; Other: Oral; Additional info: Oral tongue CA, neck node lt TECHNIQUE: Imaging protocol: Computed tomography images of the neck with contrast. Radiation optimization: All CT scans at this facility use at least one of these dose optimization techniques: automated exposure control; mA and/or kV adjustment per patient size (includes targeted exams where dose is matched to clinical indication); or iterative reconstruction. Contrast material: 256; Contrast volume: 75 ml; Contrast route: INTRAVENOUS (IV); COMPARISON: 1. PT PET/CT Skull/mid thigh 05/07/2020 2:[address] Neck with contrast 03/05/2020 4:29:57 PM 3. MRI ORBIT FACE NECK W/O FOLL W 04/03/2020 11:16:36 AM FINDINGS: Brain: Parenchymal scarring in the right lung apex. Nasopharynx: Unremarkable. Dental: Considerable maxillary dental disease is again demonstrated with periapical lucencies and hard palate erosion. Oropharynx: There is a defect in the left oral tongue at the site of previously demonstrated mass. Please note, the patient is cancer was poorly visualized on the initial CT neck soft tissues, was better characterized by MRI and PET. These modalities could be utilized to better evaluate the operative site, as needed. Hypopharynx: Unremarkable. Larynx: Unremarkable. Normal epiglottis. Retropharyngeal space: Unremarkable. Submandibular/Parotid glands: Asymmetric enhancement of the left submandibular gland could reflect sialadenitis. Thyroid: Normal. No enlarged or calcified nodules. Lymph nodes: There are new centrally necrotic, peripherally enhancing lymph nodes. A left jugulodigastric lymph node measures 1.4 x 0.9 cm on image 55 of series 203. A left accessory sasha chain lymph node measures 2.0 x 1.7 cm on the same image. Trachea: Visualized trachea is unremarkable. Lungs: There is a new 3 mm nodule in the medial left lung apex, image 69 series 201. Bones/joints: Mild cervicothoracic levoconvex scoliosis. Moderate degenerative changes. Vasculature: There is a severe arterial stenosis at the left subclavian/axillary artery junction. Bilateral carotid atherosclerosis causing mild, borderline moderate stenoses. Soft tissues: A paucity of fat consistent with cachexia. There may be a component of post treatment generalized soft tissue edema. IMPRESSION: New, necrotic left cervical metastatic lymph nodes. New 3 mm left upper lobe pulmonary nodule is nonspecific, concerning for a small metastasis. Recommend follow-up CT chest in 3 months. Electronically signed by: Poonam Leyva On 10/29/2020 19:22:32 PM
== END ==
LOC: M RAD 15:56
PROVIDERS: ATTEND General Practice
DX: C02.3 Malignant neoplasm of anterior two-thirds of tongue, part unspecified (principal); R91.8 Other nonspecific abnormal finding of lung field
CPT/HCPCS: 36591; 70491; 80053; G0463; J1642; Q9967

== ENCOUNTER → 2020-11-04 | Outpatient (CLI) | payer MEDICARE ==
[~2020-11-04] MED LIST changes: -ISOVUE-370 76% 100ML VIAL As Ordered ONE; -MORP30TASA PO
--- NOTE | 2020-11-04 16:24 | REP ---
INDICATION: RESTAGING TONGUE CANCER C02.1. COMPARISON: Comparison PET-CT study [address] study of the neck with IV contrast 29 October 2020.. TECHNIQUE: Sixty-five minutes following the intravenous injection of a 14.68 mCi dose of F-18 FDG, three-dimensional PET scintigraphy is acquired from the skull base to the proximal thighs. Triplanar noncontrast CT scanning is acquired through the same anatomic range for attenuation correction, and image registration with scan parameters optimized to minimize radiation exposure to the patient. PET scintigraphy and CT datasets were fused and displayed on a workstation with multiplanar and projection display capability. FINDINGS: In the head and neck soft tissues there is asymmetric uptake along the lateral pharyngeal wall on the left with maximum standard uptake value 4.50. There is relatively low level hypermetabolic uptake in 2 areas of cervical adenopathy on the left, maximum standard uptake value in the more superior of these abnormal nodes is 3.49 and that in the more inferior sasha focus is is 2.98. Head and neck soft tissues are otherwise unremarkable. Some normal variant skeletal muscle uptake is seen. In the chest there is a focus of hypermetabolic uptake adjacent the right atrium in the region of the suprapatellar hepatic inferior vena cava. It is not clear that this is in the lung parenchyma. Maximum standard uptake value is 4.03 in this focus. No other abnormal pulmonary parenchymal hypermetabolic uptake is seen. New No abnormal uptake is seen in the abdomen or pelvis. Extensive skeletal muscle uptake is seen in the thighs, psoas muscles, and paraspinal muscles. IMPRESSION: There is asymmetric hypermetabolic uptake in the lateral pharyngeal wall region on the left adjacent to the lateral surface of the posterior tongue. There is mildly hypermetabolic adenopathy in the left neck. An equivocal focus of hypermetabolic uptake is seen at the right lung base adjacent to the inferior vena cava and right atrium. <Electronically signed by Javier Orozco > 11/04/20 [id number]
== END ==
LOC: M PLARAD 11:01
PROVIDERS: ATTEND General Practice
DX: C02.1 Malignant neoplasm of border of tongue (principal)
CPT/HCPCS: 78815; A9552

== ENCOUNTER → 2020-11-04 | Outpatient (CLI) | payer MEDICARE ==
[~2020-11-04] MED LIST changes: +SODIUM CHLORIDE 0.9% INJ 10 ML SYR IV PRN
[2020-11-04 10:58] LABS: BASO % 0.1 % (0.0-1.0); EOS # 0.3 10^3/uL (0.0-0.5); HEMATOCRIT 29.3 % (42.0-52.0); HEMOGLOBIN 9.5 g/dl (13.5-17.5); LYMPH # 0.6 10^3/uL (1.5-5.0); LYMPH % 8.1 % (24.0-44.0); MEAN CORPUSCULAR HEMOGLOBIN 34.8 pg (27.0-33.0); MEAN CORPUSCULAR HGB CONC 32.4 g/dl (32.0-36.5); MEAN CORPUSCULAR VOLUME 107.3 fl (80.0-96.0); MONO # 0.7 10^3/uL (0.0-0.8); NEUTROPHILS # 6.2 10^3/uL (1.5-8.5); NEUTROPHILS % 78.4 % (36.0-66.0); PLATELET COUNT, AUTOMATED 235 10^3/uL (150-450); RED BLOOD COUNT 2.73 10^6/uL (4.30-6.10); WHITE BLOOD COUNT 7.9 10^3/uL (4.0-10.0)
[2020-11-04 11:09] LABS: INR 1.03; PROTHROMBIN TIME 13.7 SECONDS (12.5-14.3)
[2020-11-04 11:10] LABS: PARTIAL THROMBOPLASTIN TIME 35.3 SECONDS (24.2-38.5)
== END ==
LOC: M ONCR 10:42
PROVIDERS: ATTEND General Practice
DX: C02.3 Malignant neoplasm of anterior two-thirds of tongue, part unspecified (principal)

== ENCOUNTER → 2020-11-06 | Outpatient (CLI) | payer MEDICARE ==
[~2020-11-06] MED LIST changes: +LIDOCAINE 1% MDV 20ML VIAL As Ordered ONE; +SODIUM BICARBONATE 8.4% INJ 50MEQ 50 ML VIAL As Ordered ONE; -SODIUM CHLORIDE 0.9% INJ 10 ML SYR IV PRN
[2020-11-06 13:45] VITALS: BP 106/52
--- NOTE | 2020-11-06 15:58 | REP ---
INDICATION: LT NECK LYMPHNODE, TONGUE CANCER. COMPARISON: None. TECHNIQUE: The procedure was performed by SWETHA Red, under the direct supervision of Dr. Orozco. The risks and benefits of the procedure were explained to the patient and an informed consent was obtained both verbally and written. Directly prior to the start of the procedure a formal time-out was completed in the procedure room. FINDINGS: Using ultrasound guidance the left cervical lymph node was localized. The skin was prepped and draped in a sterile fashion. Three mL of buffered lidocaine was used as a local anesthetic. Using ultrasound guidance a 8 fine needle aspirations were obtained using 25 gauge needles. Four specimens were sent to our lab here, and remaining 4 were sent out in RPMI solution, for further testing. The patient tolerated the procedure well and there were no immediate complications. After the appropriate amount of monitored convalescence the patient was discharged from the department. IMPRESSION: 1. Ultrasound-guided left cervical lymph node fine needle aspiration. <Electronically signed by Teresa Colon > 11/06/20 [id number] <Electronically signed by Javier Orozco > 11/06/20 [id number]
== END ==
LOC: M IRPRO 12:33
PROVIDERS: ATTEND General Practice
DX: C02.3 Malignant neoplasm of anterior two-thirds of tongue, part unspecified (principal)

== ENCOUNTER → 2020-11-14 | Outpatient (CLI) | payer MEDICARE ==
[~2020-11-14] MED LIST changes: -LIDOCAINE 1% MDV 20ML VIAL As Ordered ONE; +MORP30TASA PO; +OXYC-404 PO; -SODIUM BICARBONATE 8.4% INJ 50MEQ 50 ML VIAL As Ordered ONE
--- NOTE | 2020-11-14 15:49 | RADENCPD ---
Date/Time of Encounter Date of Encounter: November 14, 2020 Time of Encounter: 15:31 Encounter Saw Joel today. Weight is up 4 lbs. He is eating well despite his mouth and left neck pain. He thinks that the fentanyl patch has stopped working. The oxycodone for breakthrough pain is still effective however only mildly so. I discussed referral back to Dr. Lares and Dr. Viera for consideration of additional therapy now that he has conclusively failed chemoradiation. They will ask to have their appointments moved up if possible. For his pain I suspect that he does not have adequate subcutaneous tissue to make effective use of the medication in patch form as he is quite cachectic. Thus I discussed a conservative transition to morphine ER for long active pain medication. I err on the side of caution and recommend 30 mg BID ER morphine. I have asked him to discontinue the fentanyl patch for 12 hours prior to starting this. He may reserve the oxycodone liquid for breakthrough pain. He should hold all narcotics if there is unwanted sedation. He will call back if there are any problems. RON VALVERDE MD November 14, 2020 15:49
== END ==
LOC: M ONCR 13:53
PROVIDERS: ATTEND General Practice
DX: C02.3 Malignant neoplasm of anterior two-thirds of tongue, part unspecified (principal)

== ENCOUNTER → 2020-11-27 | Outpatient (CLI) | payer MEDICARE ==
--- NOTE | 2020-11-27 13:46 | RADONC ---
Radiation Oncology Hx/FUP Radiation Oncology Hx/FUP Date of Service: November 27, 2020 Pt Identifier Joel Salguero is a 70 year old male with a history of tobacco and alcohol use, NSCLC in remission and stage GRISELDA left oral tongue cancer [id number]. He was deemed medically inoperable and so underwent chemoradiation 70 Gy in 35 fractions with concurrent carboplatin completed 09/03/20. He had clinical sasha progression in the left neck evident on exam from 10/29/20 this was confirmed on subsequent PET-CT on 11/04/20 and biopsy thereafter on 11/06/20. Diagnosis/Treatment History Oncologic History NSCLC 07/25/11 RUL lobectomy for stage I NSCLC 06/10/18 completed SBRT 60 Gy in 5 fractions for presumed RLL stage I NSCLC ([facility]) Oral Cavity SCC Presented February 2020 with an ulcerated left tongue mass. 03/05/20 CT neck showed no adenopathy 03/28/20 Biopsy ([facility]) showing SCC 04/03/20 MRI with 3.9 cm lesion, borderline 1A LN [id number] 04/30/20 Evaluated by ENT @ [facility] ([facility]) with plan for resection 05/07/20 PET-CT with >5 cm avid lesion uptake in BL level II and level IA LN 06/03/20 Attempted resection aborted due to deep intrinsic tongue involvement 06/17/20 Admitted with aspiration pneumonia ([facility]) 07/15/20-09/03/20 Chemoradiation 70 Gy in 35 fractions with carboplatin 10/29/20 Exam with ORN anterior mandible, left neck cervical nodes 11/04/20 Cystic left cervical nodes indeterminate residual at primary site 11/06/20 Biopsy confirming recurrence left neck Interval History Joel reports he is eating soft solid foods with the aid of [facility] requests refills of this and zofran for nausea. His pain is poorly controlled, confined to the tongue and left neck, especially along the mandible on the left. He had been taking ER morphine but this increased his nausea, and so he stopped the medicat ion. The oxycodone he is taking helps but the effect is transient. Says Dr. Viera wrote for long acting oxycodone. Also reports there is a plan to start immunotherapy in the coming weeks. Current Therapy Immunotherapy pending Stage Stage GRISELDA [id number] left oral tongue SCC Social History: Former smoker Former drinker Allergies / Meds Allergies: Coded Allergies: Egoudnr-Hcw-Gka Reductase Inhibitor (Verified Allergy, Unknown, 03/27/20) atorvastatin (Verified Allergy, Unknown, 11/01/20) morphine (Verified Adverse Reaction, Intermediate, confusion and memory loss, 03/27/20) Home Meds Active Scripts Ondansetron HCl (Ondansetron HCl) 8 Mg Tablet, 8 MG PO Q8H PRN for NAUSEA OR VOMITING, #30 TAB 2 Refills Prov:RON VALVERDE MD 11/27/20 Magic Mouthwash (First-Mouthwash Blm) 1 Ea Susp, 10 ML SSP QID PRN for MUCOSITIS, #840 ML 5 Refills (Diphenhydramine/maalox/lidocaine 1:1:1) May compound if kit unavailable/not covered by insurance Prov:RON VALVERDE MD 11/27/20 Morphine Sulfate (Morphine Sulfate ER) 30 Mg Tablet.er, 1 TAB PO BID MDD 2 Tablet(s) for 15 Days, #30 TAB Discontinue fentanyl patch x 12 hours prior to first dose Prov:RON VALVERDE MD 11/14/20 Oxycodone HCl (Oxycodone HCl) 5 Mg/5 Ml Solution, 10 ML PO Q4HP PRN for pain MDD 60 ml for 14 Days, #840 ML Prov:RON VALVERDE MD 11/12/20 Amoxicillin (Amoxicillin) 500 Mg Capsule, 500 MG PO BID for 21 Days, #42 CAP Prov:RON VALVERDE MD 10/29/20 Pentoxifylline (Pentoxifylline) 400 Mg Tablet.er, 1 TAB PO BID, #60 TAB 2 Refills Prov:RON VALVERDE MD 10/29/20 Prochlorperazine Maleate (Prochlorperazine Maleate) 10 Mg Tablet, 10 MG PO Q8H PRN for NAUSEA OR VOMITING, #30 TAB 2 Refills Prov:SVETLANA VIERA MD 07/02/20 Rivaroxaban (Xarelto) 10 Mg Tablet, 10 MG PEG DAILY for 30 Days, #30 TAB Prov:SVETLANA VIERA MD 07/02/20 [Lansoprazole Suspension] 30 MG/10 ML MIRA No Conflict Check, 30 MG GT DAILY, #1 BOTTLE Prov:MIGUEL FELIPE MD 06/26/20 Levetiracetam (Levetiracetam) 500 Mg/5 Ml Solution, 500 MG GT BID, #1 CONTAINER Prov:MIGUEL FELIPE MD 06/26/20 L.acidoph/L.bulg/B.bif/S.therm (Svetlana-Bid Caplet) 1 Each Tablet, 1 EA PEG TID, #90 TAB Prov:MIGUEL FELIPE MD 06/26/20 Folic Acid (Folic Acid) 1 Mg Tablet, 1 MG PEG DAILY, #30 TAB Prov:MIGUEL FELIPE MD 06/26/20 Venlafaxine HCl (Venlafaxine HCl ER) 75 Mg Cap.er.24h, 225 MG PO QHS, #30 TABS Prov:MIGUEL FELIPE MD 06/26/20 Reported Medications Lidocaine HCl (Lidocaine HCl Viscous) 100 Ml Solution 11/01/20 Cyanocobalamin (Vitamin B-12) (Vitamin B-12) 500 Mcg Tablet, IM QWEEK, TAB 03/27/20 Alprazolam (Alprazolam) 0.5 Mg Tablet, 0.5 MG PO Q8H PRN for ANXIETY/AGITATION 03/27/20 Review of Systems Review of Systems Constitutional: Reports: Fatigue; Denies: Weight Loss Eyes: Denies: Pain HEENT: Reports: Ear Pain, Dysphagia, Sore Throat Skin: Denies: Rash Pulmonary: Denies: Dyspnea, Cough Cardiovascular: Denies: Chest Pain, Palpitations Gastrointestinal: Denies: Abdominal Pain Hematologic: Denies: Bruising Musculoskeletal: Reports: Neck pain; Denies: Back pain Neurological: Denies: Weakness, Numbness Psych: Reports: Mood Normal Physical Examination Vital Signs Wt 118 lbs T 98.5 P 69 RR 18 BP 121/71 O2 99% Pain 6 Fatigue 2 General Exam: Positive: Alert, Cooperative, Mild Distress Eye Exam: Positive: PERRLA, EOMI ENT EXAM: Positive: Other ENT (Left oral tongue necrotic patch, 3cm in extent, there is visible tumor coming through the necrotic tissue. (2) 0.2 cm patches of exposed mandible anteriorly opposite eachother) Neck Exam: Positive: Lymphadenopathy (Tender indurated left level II and III adenopathy.) Chest Exam: Positive: Clear to auscultation Heart Exam: Positive: Rate Normal, Regular Rhythm Abdomen Exam: Positive: Soft Extremity Exam: Negative: Edema Neuro Exam: Positive: Cranial Nerves 3-12 NL Psych Exam: Positive: Mental status NL Diagnostic and Laboratory Diagnostic Review Radiologic images, relevant labs and pathology reports were personally reviewed and discussed with Mr. Salguero. Assessment and Plan Impression Assessment Mr. Salguero is a 70 year old male with a history of tobacco and alcohol use, NSCLC in remission and stage GRISELDA left oral tongue cancer [id number]. He was deem ed medically inoperable and so underwent chemoradiation 70 Gy in 35 fractions with concurrent carboplatin completed 09/03/20. He had clinical sasha progression in the left neck evident on exam from 10/29/20 this was confirmed on subsequent PET-CT on 11/04/20 and biopsy thereafter on 11/06/20. I think Joel has recurrent tongue tumor present on exam today conclusively for the first time, as evidenced by a small mass protruding through the prior area of necrotic tongue on the left lateral aspect. Joel is set to begin immunotherapy with Dr. Viera in the coming weeks. This is likely his only recourse for the recurrent sasha disease given his condition. They remain optimistic for a response, but because he is comparatively frail, in pain, and his prognosis is not certain, I again offered referral to palliative care for symptom management, Joel however, declined this. As it stands they will try the long-acting oxycodone prescribed by Dr. Viera today, and from there alert either of us if he wishes to pursue a palliative care referral. I reiterated that in having tried all manner of narcotics up to and including a 50 mcg fentanyl patch, I am short on ideas. I am not comfortable personally prescribing more intensive agents such as methadone. He is still eating and maintaining stable weight, with the use of BLM and zofran which I will refill today. I will see him again in 1 month. Performance Status ECOG 2 Plan Refilled zofran, BLM Patient to try long-acting oxycodone Will consider palliative care referral if this is ineffective Follow up in 1 month Mr. Salguero was encouraged to call with questions or concerns in the interim period. Billing Statement Total time of [23] minutes was spent preparing for the visit [1], obtaining HPI [4], examining the patient [3], reviewing diagnostic tests [2], discussing management options [4], coordinating care [1], and writing this note [8]. RON VALVERDE MD November 27, 2020 13:46
== END ==
LOC: M ONCR 09:30
PROVIDERS: ATTEND General Practice
DX: C02.3 Malignant neoplasm of anterior two-thirds of tongue, part unspecified (principal)